=== PATIENT | female | born 1985 | race Two or more races ===

== ENCOUNTER 2018-04-13 15:35 | Emergency (ER) | payer MEDICAID ==
[~2018-04-13] VITALS: Ht 167.6 cm; Wt 88.9 kg
[~2018-04-13 15:35] MED LIST: CIPROFLOXACIN500 M2 ORAL; IBUPROFEN600 MG ORAL; KEFLEX500 MG ORAL; ZOFRAN4 MG ORAL
[2018-04-13 15:50] VITALS: BP 121/76
[2018-04-13] MEDS ORDERED: NKM (15:50)
[2018-04-13 16:24] LABS: APPEARANCE,URINE CLEAR; BILIRUBIN, URINE NEGATIVE (NEGATIVE); COLOR,URINE PALE YELLOW; GLUCOSE, URINE (UA) 4+ (NEGATIVE); KETONES,URINE NEGATIVE (NEGATIVE); LEUKOCYTE ESTERASE ,URINE 2+ (NEGATIVE); NITRITE,URINE NEGATIVE (NEGATIVE); PH,URINE 6 (4.5-8.0); PROTEIN,URINE 1+ (NEGATIVE); UROBILINOGEN,URINE NORMAL MG/DL (0.0-1.0)
--- NOTE | 2018-04-13 16:34 | Emergency Room Report ---
History of Present Illness General Chief Complaint: Female Urogenital Problems Source: Patient Present Illness HPI 33-year-old female patient presents the ER complaining of pain with urinating for the past 5 days. Denies rash or lesions. Denies vaginal discharge. Denies hematuria. Reports increased frequency and urgency. Reports suprapubic pain and right-sided pelvic pain. Denies vaginal discharge. Denies fever, vomiting, chest pain, shortness of breath, diarrhea. Denies constipation. Reports recent sexual activity, states with one partner, denies concern for STI. Denies history of kidney stones. Allergies: Coded Allergies: NO KNOWN ALLERGIES (Unverified Allergy, Unknown, 02/09/15) Patient History Past Medical History: see triage record Now: No Reviewed Nursing Documentation: PMH: Agreed; PSxH: Agreed Nursing Documentation-PMH Past Medical History: No Stated History Review of Systems All Other Systems: negative except mentioned in HPI Physical Exam Vital Signs Date Time Temp Pulse Resp B/P (MAP) Pulse Ox O2 Delivery O2 Flow Rate FiO2 04/13/18 15:47 98.4 95 18 123/78 99 Room Air Sp02 EP Interpretation: reviewed, normal General Appearance: well appearing, no apparent distress, alert, GCS 15, non- toxic Head: normocephalic, atraumatic Eyes: bilateral eye normal inspection, bilateral eye PERRL ENT: hearing grossly normal, normal pharynx, no angioedema, normal voice, uvula midline, moist mucus membranes Neck: full range of motion Respiratory: lungs clear, normal breath sounds, no rhonchi, no respiratory distress, no accessory muscle use, no wheezing, speaking full sentences Cardiovascular #1: regular rate, rhythm, no edema Gastrointestinal: non tender, soft, no mass, non-distended, no guarding, no rebound Genitourinary: no CVA tenderness, cervix normal, ext genitalia/vag normal, os closed, other - mucus, no bleeding, mild erythema; mild cervical motion tenderness Musculoskeletal: back normal, digits/nails normal, gait/station normal, normal range of motion, non-tender Neurologic: alert, oriented x3, responsive, motor strength/tone normal, sensory intact Psychiatric: mood/affect normal Skin: no rash Lymphatic: no adenopathy Medical Decision Making PA Attestation Dr. Meeks is my supervising Physician whom patient management has been discussed with. Diagnostic Impression: Primary Impression: Pelvic inflammatory disease Additional Impressions: Trichomoniasis Elevated random blood glucose level Lesion of cervix ER Course Pt presents to ED c/o suprapubic pain and dysuria. DDX considered but are not limited to PID, ovarian torsion, UTI, STI, kidney stones, appendicitis, tubo-ovarian abscess, cholecystitis, gastroenteritis, ovarian cyst, pyelonephritis, Cevh-[id number]. Patient resting comfortably, no acute distress, no CVA tenderness on exam, no hematuria, low suspicion for nephrolithiasis, does not require CT at this time. VITAL SIGNS are WNL, patient is afebrile ER COURSE: Provided with pain medication. Provided with IV fluids. CBC, CMP shows no elevation in WBCs or LFTs, elevated blood glucose noted, advised patient to follow-up with PCP to discuss further evaluation for diabetes , denies history of diabetes. Her acute intervention in the ER. UA with reflux few WBCs and epithelial cells, UTI unlikely, trichomonads noted, likely Trichomonas infection, will treat with Flagyl. Urine negative Wet mount shows rare trichomonads, moderate white blood cells and epithelial cells, no clue cells, no yeast, consistent with UA results. Provide patient with azithromycin and Rocephin while in the ER to cover for possible STI infection. Advised patient follow-up with STI clinic. Advised patient to inform partners of need for testing. Follow-up with PCP. Ultrasound echogenic lesion within the cervix nonspecific findings, possible calcification with a nabothian cyst, otherwise no acute findings, no tubo- ovarian abscess. Discuss results with the patient. Provided patient with copy of results. Instructed patient to followup with PCP and discuss results of report with patient, discuss need for further treatment and referral. Endocervical swab for gonorrhea/chlamydia Physical exam shows patient with cervical motion tenderness. Will treat patient for PID with doxycycline and metronidazole due to positive Trichomonas on UA and wet mount. Advised patient not to drink alcohol while taking metronidazole. Follow-up with SAFETY REPRESENTATIVE specialist. Provided with contact information for SAFETY REPRESENTATIVE specialist. ER precautions given. Patient reports pain symptoms improved while in the ER. DISCHARGE: -Rx provided for Doxycycline 100mg PO BID x 14 days -Rx provided for Metronidazole 500mg PO BID x 14 days At this time pt is stable for d/c to home. Will provide with patient care instructions and any necessary prescriptions. Patient to take medication as instructed. Care plan and follow-up instructions provided. Patient questions asked and answered. Patient instructed to follow-up with OBGYN in 72 hours. Patient should follow-up with PCP in 3 - 5 days. ER precautions given. Patient instructed to return to ER immediately for any new or worsening of symptoms. - Please note that this Emergency Department Report was dictated using [employer]vibration technician technology software, occasionally this can lead to erroneous entry secondary to interpretation by the dictation equipment. Labs Test 04/13/18 16:12 04/13/18 18:28 Urine Color Pale yellow Urine Appearance Clear Urine pH 6 (4.5-8.0) Urine Specific [place] 1.005 (1.005-1.035) Urine Protein 1+ (NEGATIVE) Urine Glucose (UA) 4+ (NEGATIVE) Urine Ketones Negative (NEGATIVE) Urine Blood 2+ (NEGATIVE) Urine Nitrite Negative (NEGATIVE) Urine Bilirubin Negative (NEGATIVE) Urine Urobilinogen Normal MG/DL (0.0-1.0) Urine Leukocyte Esterase 2+ (NEGATIVE) Urine RBC 5-10 /HPF (0 - 2) Urine WBC 2-4 /HPF (0 - 2) Urine Squamous Epithelial Cells Few /LPF (NONE/OCC) Urine Bacteria Few /HPF (NONE) Urine Trichomonas Few /HPF (NONE) Urine HCG, Qualitative Negative (NEGATIVE) White Blood Count 9.6 K/UL (4.8-10.8) Red Blood Count 4.87 M/UL (4.20-5.40) Hemoglobin 14.4 G/DL (12.0-16.0) Hematocrit 41.8 % (37.0-47.0) Mean Corpuscular Volume 86 FL (80-99) Mean Corpuscular Hemoglobin 29.5 PG (27.0-31.0) Mean Corpuscular Hemoglobin Concent 34.3 G/DL (32.0-36.0) Red Cell Distribution Width 10.6 % (11.6-14.8) Platelet Count 242 K/UL (150-450) Mean Platelet Volume 8.1 FL (6.5-10.1) Neutrophils (%) (Auto) 81.3 % (45.0-75.0) Lymphocytes (%) (Auto) 12.8 % (20.0-45.0) Monocytes (%) (Auto) 5.0 % (1.0-10.0) Eosinophils (%) (Auto) 0.3 % (0.0-3.0) Basophils (%) (Auto) 0.6 % (0.0-2.0) Sodium Level 135 MMOL/L (136-145) Potassium Level 3.6 MMOL/L (3.5-5.1) Chloride Level 98 MMOL/L (98-107) Carbon Dioxide Level 26 MMOL/L (21-32) Anion Gap 11 mmol/L (5-15) Blood Urea Nitrogen 11 mg/dL (7-18) Creatinine 1.0 MG/DL (0.55-1.30) Estimat Glomerular Filtration Rate > 60 mL/min (>60) Glucose Level 345 MG/DL (74-106) Calcium Level 9.5 MG/DL (8.5-10.1) Total Bilirubin 0.8 MG/DL (0.2-1.0) Aspartate Amino Transf (AST/SGOT) 25 U/L (15-37) Alanine Aminotransferase (ALT/SGPT) 50 U/L (12-78) Alkaline Phosphatase 110 U/L (46-116) Total Protein 8.0 G/DL (6.4-8.2) Albumin 3.8 G/DL (3.4-5.0) Globulin 4.2 g/dL Albumin/Globulin Ratio 0.9 (1.0-2.7) Lipase 87 U/L (73-393) CT/MRI/US Diagnostic Results CT/MRI/US Diagnostic Results : Imaging Test Ordered: Pelvic US Impression There is an echogenic lesion seen within the cervix. Findings are nonspecific and may represent non-shadowing calcification within the nabothian cysts. Otherwise, no acute findings. Last Vital Signs Date Time Temp Pulse Resp B/P (MAP) Pulse Ox O2 Delivery O2 Flow Rate FiO2 04/13/18 15:50 98.6 88 18 121/76 98 Room Air Status: improved Disposition: HOME, SELF-CARE Condition: Stable Scripts Metronidazole* (FLAGYL*) 500 Mg Tablet 500 MG ORAL BID for 14 Days, #28 TAB Prov: Burke Hidalgo P.AReji 04/13/18 Doxycycline Hyclate* (VIBRAMYCIN*) 100 Mg Capsule 100 MG ORAL EVERY 12 HOURS for 14 Days, #28 CAP 0 Refills Prov: Burke Hidalgo P.AReji 12/28/18 Referrals: NOT CHOSEN IPA/MD,REFERRING (PCP) Patient Instructions: Pelvic Inflammatory Disease, [id number], Trichomoniasis Additional Instructions: Followup with primary care provider and followup with and./or OBGYN. Discuss elevated blood sugar and evaluation for diabetes with PCP. Drink plenty of fluids. Take medications as directed. Do not drink alcohol while taking Flagyl. Patient questions asked and answered. ER precautions given, patient instructed to return to ER immediately for any new or worsening of symptoms. Burke Hidalgo Apr 13, 2018 16:34
[2018-04-13] MEDS ORDERED: Lidocaine 1% MPF 10mg/ml 5ml INJ ONE (18:15)
[2018-04-13] MEDS ORDERED: Azithromycin 250mg tab ORAL ONE (18:15)
[2018-04-13 18:48] LABS: ANION GAP 11 mmol/L (5-15); BLOOD UREA NITROGEN 11 mg/dL (7-18); CALCIUM 9.5 MG/DL (8.5-10.1); CARBON DIOXIDE 26 MMOL/L (21-32); CHLORIDE 98 MMOL/L (98-107); POTASSIUM 3.6 MMOL/L (3.5-5.1); SODIUM 135 MMOL/L (136-145)
[2018-04-13 18:52] LABS: ALANINE AMINOTRANSFERASE 50 U/L (12-78); ALBUMIN 3.8 G/DL (3.4-5.0); ALBUMIN/GLOBULIN RATIO 0.9 (1.0-2.7); ALKALINE PHOSPHATASE 110 U/L (46-116); ASPARTATE AMINO TRANSFERASE 25 U/L (15-37); BILIRUBIN,TOTAL 0.8 MG/DL (0.2-1.0)
[2018-04-13 19:04] LABS: BASOPHILS % (AUTO) 0.6 % (0.0-2.0); EOSINOPHILS % (AUTO) 0.3 % (0.0-3.0); HEMATOCRIT 41.8 % (37.0-47.0); HEMOGLOBIN 14.4 G/DL (12.0-16.0); LYMPHOCYTES % (AUTO) 12.8 % (20.0-45.0); MEAN CORPUSCULAR VOLUME 86 FL (80-99); NEUTROPHILS % (AUTO) 81.3 % (45.0-75.0); PLATELET COUNT 242 K/UL (150-450); RED BLOOD COUNT 4.87 M/UL (4.20-5.40); RED CELL DISTRIBUTION WIDTH 10.6 % (11.6-14.8); WHITE BLOOD COUNT 9.6 K/UL (4.8-10.8)
[2018-04-13] MEDS ORDERED: METRONIDAZOLE500 MG ORAL (20:19)
[2018-04-13] MEDS ORDERED: VIBRAMYCIN100 MG ORAL (20:19)
--- NOTE | 2018-04-13 20:51 | Diagnostic Imaging Report ---
EXAM: US Pelvis Complete, Transabdominal CLINICAL HISTORY: ABD PAIN TECHNIQUE: Real-time transabdominal pelvic ultrasound (complete) with image documentation. COMPARISON: No relevant prior studies available. FINDINGS: Uterus/cervix: There is an echogenic lesion seen within the cervix. Normal endometrial stripe thickness. No myometrial mass. Right ovary: 2.2 x 1.8 x 1.2 cm. No mass. Normal blood flow. Left ovary: 2.8 x 2.8 x 1.6 cm. No mass. Normal blood flow. Free fluid: No free fluid. IMPRESSION: There is an echogenic lesion seen within the cervix. Findings are nonspecific and may represent non-shadowing calcification within the nabothian cysts. Otherwise, no acute findings.
[2018-04-13 21:15] VITALS: BP 118/73
== END 2018-04-13 21:15 | disposition home or self-care (01) ==
LOC: EMR 16:09
DX: N73.9 Female pelvic inflammatory disease, unspecified (principal); A59.9 Trichomoniasis, unspecified; R73.09 Other abnormal glucose; R93.89 Abnormal findings on diagnostic imaging of other specified body structures
CPT/HCPCS: 36415; 76830; 76856; 80053; 81003; 81025; 83690; 85025; 87210; 96360; 96372; 99284; J0696; Q0144

== ENCOUNTER 2018-09-13 22:42 | Emergency (ER) | payer MEDICAID ==
[~2018-09-13] VITALS: Ht 167.6 cm; Wt 89.8 kg
[~2018-09-13 22:42] MED LIST changes: +METRONIDAZOLE500 MG ORAL; +NKM; +VIBRAMYCIN100 MG ORAL
[2018-09-13 22:59] VITALS: BP 130/78
--- NOTE | 2018-09-13 23:00 | NUR ---
ER Nurse Note: Pt came from home c/o bleeding from left breast with pressure. Pt stated she had a biopsy on August 27. Per pt, no pain but pain present when pressure. Slight drainage from biopsy wound; blood and clear like fluid. Pt a&ox4, VSS, no signs of distress. Will continue to montior.
[2018-09-13] MEDS ORDERED: CEPHALEXIN500 MG ORAL (23:29)
[2018-09-13] MEDS ORDERED: Bacitracin Oint UD TOPIC ONE (23:30)
[2018-09-13 23:45] VITALS: BP 130/78
--- NOTE | 2018-09-13 23:45 | NUR ---
ER Nurse Note: All orders completed per ERMD orders. Pt seen, treated, medically cleared for discharge by ERMD. Discharge instructions given with repeat verbazliaion by pt. Instructed pt to follow up with primary care provider and biopsy center within 2-3 days. Pt a&ox4, VSS, no signs of distress. Puncture site cleaned and gauzed. ID band removed. Pt left with all belongings with steady gait via own transportation.
--- NOTE | 2018-09-14 00:41 | Emergency Room Report ---
History of Present Illness General Chief Complaint: General Complaint Source: Patient Present Illness HPI Patient present with complaints of recent discharge from her left lower breast Biopsy site patient had biopsy taken on August 27 Reports that there was some mild bruising noted There was some mild swelling as well however today she noticed some discharge from a small region with a biopsy was taken Denies any change in pain denies any change with collar at this time Denies any other trauma Patient had the procedure performed at the [facility] Allergies: Coded Allergies: NO KNOWN ALLERGIES (Unverified Allergy, Unknown, 09/13/18) Patient History Past Medical History: see triage record Pertinent Family History: none Last Menstrual Period: 09/13/18 Now: No : 3 Para: 3 Reviewed Nursing Documentation: PMH: Agreed; PSxH: Agreed Nursing Documentation-PMH Past Medical History: No Stated History Review of Systems All Other Systems: negative except mentioned in HPI Physical Exam Vital Signs Date Time Temp Pulse Resp B/P (MAP) Pulse Ox O2 Delivery O2 Flow Rate FiO2 09/13/18 22:43 98.1 78 18 130/78 (95) 97 Room Air Sp02 EP Interpretation: reviewed, normal General Appearance: well appearing, no apparent distress Head: normocephalic, atraumatic Eyes: bilateral eye PERRL, bilateral eye EOMI ENT: hearing grossly normal, normal pharynx Neck: supple Respiratory: lungs clear Cardiovascular #1: regular rate, rhythm Musculoskeletal: normal inspection Neurologic: alert, oriented x3, responsive Skin: other - Left breast, approximately 2 cm lateral and 1 cm inferior to the area lower area there is a small pinpoint region with clear discharge, around the area is a palpable mass, patient reports that this mass is the same as it has been and was the reason for the biopsy. No other fluctuance is palpated no flaring of erythema visualized Lymphatic: no adenopathy Medical Decision Making Diagnostic Impression: Primary Impression: hematoma Additional Impression: breast biopsy, discharge ER Course The area in question appears to be very localized in nature No obvious other fluctuance is palpable, the pinpoint region is likely where the biopsy was taken, no pus or discoloration is noted in the discharge and appears to be essentially serosanguineous. Given the discharge now after 2 weeks patient is provided antibiotics She will contact the breast center tomorrow morning Does not appear septic or toxic and is stable for close follow-up Last Vital Signs Date Time Temp Pulse Resp B/P (MAP) Pulse Ox O2 Delivery O2 Flow Rate FiO2 09/13/18 22:59 98.1 78 18 130/78 97 Room Air Status: improved Disposition: HOME, SELF-CARE Condition: Stable Scripts Cephalexin* (KEFLEX*) 500 Mg Capsule 500 MG ORAL EVERY 6 HOURS for 7 Days, CAP Prov: Constantino Maxwell DO 09/13/18 Patient Instructions: Breast Biopsy, Care After, [id number], Dressing Change , Hematoma, [id number] Additional Instructions: Please contact the [facility], where you had the procedure performed tomorrow in the morning. You have the phone number and your referral Please follow-up this call with a phone call to your clinic as well Return to the ER with any worsening symptoms such as fevers, worsening swelling or edema Constantino Maxwell DO September 14, 2018 00:41
== END 2018-09-13 23:45 | disposition home or self-care (01) ==
LOC: EMR 23:03
DX: N64.89 Other specified disorders of breast (principal); N64.52 Nipple discharge; Z98.890 Other specified postprocedural states
CPT/HCPCS: 99282

== ENCOUNTER 2018-11-28 19:13 | Emergency (ER) | payer MEDICAID ==
[~2018-11-28] VITALS: Ht 165.1 cm; Wt 89.4 kg
[~2018-11-28 19:13] MED LIST changes: +CEPHALEXIN500 MG ORAL
--- NOTE | 2018-11-28 19:42 | NUR ---
ED Nurse Note: PT AMBULATED TO ED C/O LEFT BREAST INFECTION. PT DENIES DISCHARGE, BUT STATES REDNESS AND INCREAED WARMTH IN AREA X 2 DAYS. Pt is AO x 4times, VSS, on room air no distress.MD seen Pt at bedside.
--- NOTE | 2018-11-28 19:42 | Emergency Room Report ---
History of Present Illness General Chief Complaint: General Complaint Source: Patient Present Illness HPI 33-year-old female with no significant past medical history here complaining of pain and swelling over her left breast. Patient reports that back in August 2018 she had a breast biopsy done and it showed breast cyst. However she had a breast abscess 1 month ago and was drained by a specialist patient was put on antibiotics right after. She denies any pain or swelling at the site of the drainage however reports that 2 days ago started having pain and erythema on the medial side of the same breast away from where she had incision and drainage. Rating the pain is 7 out of 10 upon palpation without radiation. Has not taken medication for pain. Denies fever and chills, shortness of breath , palpitation, nipple discharge, and other associated symptoms. Patient has an upcoming appointment with her specialist this coming Monday. Allergies: Coded Allergies: NO KNOWN ALLERGIES (Unverified Allergy, Unknown, 09/13/18) Patient History Past Medical History: see triage record Past Surgical History: unable to obtain Pertinent Family History: none Last Menstrual Period: 11/04/18 Now: No Immunizations: UTD Reviewed Nursing Documentation: PMH: Agreed; PSxH: Agreed Nursing Documentation-PMH Past Medical History: No History, Except For Hx Diabetes: Yes Review of Systems All Other Systems: negative except mentioned in HPI Physical Exam Vital Signs Date Time Temp Pulse Resp B/P (MAP) Pulse Ox O2 Delivery O2 Flow Rate FiO2 11/28/18 19:22 98.2 71 16 114/71 (85) 98 Room Air Sp02 EP Interpretation: reviewed, normal General Appearance: no apparent distress, alert, GCS 15, non-toxic Head: normocephalic, atraumatic Eyes: bilateral eye normal inspection, bilateral eye PERRL ENT: hearing grossly normal, normal pharynx, no angioedema, normal voice Neck: full range of motion, supple/symm/no masses Respiratory: chest non-tender, lungs clear, normal breath sounds, speaking full sentences Cardiovascular #1: regular rate, rhythm, no edema, no murmur Gastrointestinal: normal bowel sounds, non tender, soft, non-distended, no guarding, no rebound Musculoskeletal: back normal, gait/station normal, normal range of motion, non- tender Neurologic: alert, oriented x3, responsive, motor strength/tone normal, sensory intact, speech normal Skin: other - Cellulitis of left breast on medial side, no pus drainage and no mass noted Lymphatic: no adenopathy Medical Decision Making PA Attestation All my diagnosis and treatment plans were reviewed ad discussed with my supervising physician Dr. Keita Diagnostic Impression: Primary Impression: Cellulitis of breast ER Course 33-year-old female with no significant past medical history here complaining of pain and swelling over her left breast. Patient reports that back in August 2018 she had a breast biopsy done and it showed breast cyst. However she had a breast abscess 1 month ago and was drained by a specialist patient was put on antibiotics right after. She denies any pain or swelling at the site of the drainage however reports that 2 days ago started having pain and erythema on the medial side of the same breast away from where she had incision and drainage. Rating the pain is 7 out of 10 upon palpation without radiation. Has not taken medication for pain. Denies fever and chills, shortness of breath , palpitation, nipple discharge, and other associated symptoms. Patient has an upcoming appointment with her specialist this coming Monday. Ddx considered but are not limited to : Cellulitis,, superficial infection, abscess Vital signs: are WNL, pt. is afebrile H&PE are most consistent with: Cellulitis of left breast ORDERS: Keflex, ibuprofen ED INTERVENTIONS: Rocephin DISCHARGE: At this time pt. is stable for d/c to home. Will provide printed patient care instructions, and any necessary prescriptions. Care plan and follow up instructions have been discussed with the patient prior to discharge. Follow-up with your specialist regarding cellulitis of your breast if worsening symptoms, fever and chills return to the emergency room. Last Vital Signs Date Time Temp Pulse Resp B/P (MAP) Pulse Ox O2 Delivery O2 Flow Rate FiO2 11/28/18 19:22 98.2 71 16 114/71 (85) 98 Room Air Disposition: HOME, SELF-CARE Condition: Stable Scripts Ibuprofen (Ibu) 800 Mg Tablet 800 MG PO TID, #21 TAB Prov: Roni Clarke 11/28/18 Cephalexin* (KEFLEX*) 500 Mg Capsule 500 MG ORAL EVERY 6 HOURS for 7 Days, #28 CAP Prov: Roni Clarke 11/28/18 Patient Instructions: Cellulitis, [id number] Additional Instructions: Take medication as directed follow-up with your primary care provider and your specialist as well as breast ultrasound. If worsening symptoms return to emergency room Roni Clarke Nov 28, 2018 19:42
[2018-11-28] MEDS ORDERED: IBU800 MG PO (19:43)
[2018-11-28] MEDS ORDERED: CEPHALEXIN500 MG ORAL (19:43)
[2018-11-28] MEDS ORDERED: Lidocaine 1% MPF 10mg/ml 5ml INJ ONE (19:45)
[2018-11-28 20:12] VITALS: BP 127/77
[2018-11-28 20:17] VITALS: BP 127/77
--- NOTE | 2018-11-28 20:18 | NUR ---
ER DISCHARGE NOTE: Patient is cleared to be discharged per ERMD, pt is aox4, on room air, with stable vital signs. pt was given dc and prescription instructions, pt was able to verbalize understanding, pt id band removed without complications. pt is able to ambulate with steady gait with family. pt took all belongings.
== END 2018-11-28 20:19 | disposition home or self-care (01) ==
LOC: EMR 19:53
DX: N61.0 Mastitis without abscess (principal); E11.9 Type 2 diabetes mellitus without complications
CPT/HCPCS: 96372; 96374; 99284; J0696

== ENCOUNTER 2019-05-29 20:17 | Emergency (ER) | payer MEDICAID ==
[~2019-05-29] VITALS: Ht 165.1 cm; Wt 93.0 kg
[~2019-05-29 20:17] MED LIST changes: +IBU800 MG PO
--- NOTE | 2019-05-29 20:32 | NUR ---
ED Nurse Note: PT walked in to ED for C/O Abdominal pain x 3 days. pt reports having nausea. denies diarrhea or vomit. pt is alert x4.
[2019-05-29 20:34] VITALS: BP 118/74
[2019-05-29] MEDS ORDERED: Dicyclomine HCl 10mg/5ml oral soln ORAL ONE (20:45)
[2019-05-29] MEDS ORDERED: Lidocaine 2% Visc 15ml soln ORAL ONE (20:45)
[2019-05-29] MEDS ORDERED: Mylanta II UD 30ml ORAL ONE (20:45)
[2019-05-29 21:00] LABS: BASOPHILS % (AUTO) 0.5 % (0.0-2.0); EOSINOPHILS % (AUTO) 1.2 % (0.0-3.0); HEMATOCRIT 44.5 % (37.0-47.0); HEMOGLOBIN 14.4 G/DL (12.0-16.0); LYMPHOCYTES % (AUTO) 19.9 % (20.0-45.0); MEAN CORPUSCULAR VOLUME 90 FL (80-99); MONOCYTES % (AUTO) 3.9 % (1.0-10.0); NEUTROPHILS % (AUTO) 74.5 % (45.0-75.0); PLATELET COUNT 296 K/UL (150-450); RED BLOOD COUNT 4.95 M/UL (4.20-5.40); RED CELL DISTRIBUTION WIDTH 11.9 % (11.6-14.8); WHITE BLOOD COUNT 7.6 K/UL (4.8-10.8)
[2019-05-29 21:01] LABS: APPEARANCE,URINE CLEAR; BILIRUBIN, URINE NEGATIVE (NEGATIVE); COLOR,URINE PALE YELLOW; GLUCOSE, URINE (UA) NEGATIVE (NEGATIVE); KETONES,URINE NEGATIVE (NEGATIVE); LEUKOCYTE ESTERASE ,URINE NEGATIVE (NEGATIVE); NITRITE,URINE NEGATIVE (NEGATIVE); PH,URINE 5 (4.5-8.0); PROTEIN,URINE NEGATIVE (NEGATIVE); UROBILINOGEN,URINE NORMAL MG/DL (0.0-1.0)
[2019-05-29 21:07] LABS: ANION GAP 9 mmol/L (5-15); BLOOD UREA NITROGEN 10 mg/dL (7-18); CALCIUM 9.3 MG/DL (8.5-10.1); CARBON DIOXIDE 26 MMOL/L (21-32); CHLORIDE 102 MMOL/L (98-107); CREATININE 0.6 MG/DL (0.55-1.30); POTASSIUM 3.7 MMOL/L (3.5-5.1); SODIUM 137 MMOL/L (136-145)
[2019-05-29 21:11] LABS: ALANINE AMINOTRANSFERASE 92 U/L (12-78); ALBUMIN 4.2 G/DL (3.4-5.0); ALBUMIN/GLOBULIN RATIO 1.1 (1.0-2.7); ALKALINE PHOSPHATASE 80 U/L (46-116); ASPARTATE AMINO TRANSFERASE 32 U/L (15-37); BILIRUBIN,TOTAL 0.5 MG/DL (0.2-1.0)
[2019-05-29] MEDS ORDERED: ONDANSETRON ODT4 MG BC (21:27)
[2019-05-29] MEDS ORDERED: RANITIDINE HCL150 MG ORAL (21:27)
[2019-05-29 21:29] VITALS: BP 122/70
--- NOTE | 2019-05-29 21:29 | NUR ---
ER DISCHARGE NOTE: Patient is cleared to be discharged per ERMD, pt is aox4, on room air, with stable vital signs. pt was given dc and prescription instructions, pt was able to verbalize understanding, pt id band and iv site removed without complications. pt is able to ambulate with steady gait. pt took all belongings.
--- NOTE | 2019-05-31 07:16 | Emergency Room Report ---
History of Present Illness General Chief Complaint: Abdominal Pain Source: Patient Present Illness HPI 34-year-old female presents ED for evaluation. Complaining of abdominal pain for the last 3 days. Pain is epigastric, burning, 6 out of 10, nonradiating. Denies nausea or vomiting. Denies diarrhea. Denies chest pain. Denies fevers or chills. No other aggravating relieving factors. Denies any other associated symptoms Allergies: Coded Allergies: NO KNOWN ALLERGIES (Unverified Allergy, Unknown, 09/13/18) Patient History Past Medical History: DM Past Surgical History: none Pertinent Family History: none Social History: Denies: smoking, alcohol use, drug use Last Menstrual Period: 05/23/19 Now: No : 3 Para: 3 Immunizations: UTD Reviewed Nursing Documentation: PMH: Agreed; PSxH: Agreed Nursing Documentation-PMH Past Medical History: No History, Except For Hx Diabetes: Yes Review of Systems All Other Systems: negative except mentioned in HPI Physical Exam Vital Signs Date Time Temp Pulse Resp B/P (MAP) Pulse Ox O2 Delivery O2 Flow Rate FiO2 05/29/19 20:25 98.2 59 18 121/80 (94) 98 Room Air Sp02 EP Interpretation: reviewed, normal General Appearance: no apparent distress, alert, GCS 15, non-toxic Head: normocephalic, atraumatic Eyes: bilateral eye normal inspection, bilateral eye PERRL ENT: hearing grossly normal, normal pharynx, no angioedema, normal voice Neck: full range of motion, supple/symm/no masses Respiratory: chest non-tender, lungs clear, normal breath sounds, speaking full sentences Cardiovascular #1: regular rate, rhythm, no edema Cardiovascular #2: 2+ carotid (R), 2+ carotid (L), 2+ radial (R), 2+ radial (L) , 2+ dorsalis pedis (R), 2+ dorsalis pedis (L) Gastrointestinal: normal bowel sounds, soft, non-distended, no guarding, no rebound, tenderness - Epigastric Rectal: deferred Genitourinary: normal inspection, no CVA tenderness Musculoskeletal: back normal, normal range of motion, gait/station normal, non- tender Neurologic: alert, motor strength/tone normal, oriented x3, sensory intact, responsive, speech normal Psychiatric: judgement/insight normal, memory normal, mood/affect normal, no suicidal/homicidal ideation Reflexes: 3+ bicep (R), 3+ bicep (L), 3+ tricep (R), 3+ tricep (L), 3+ knee (R) , 3+ knee (L) Lymphatic: no adenopathy Medical Decision Making Diagnostic Impression: Primary Impression: Gastritis Qualified Codes: K29.00 - Acute gastritis without bleeding ER Course Hospital Course 34-year-old F presents to ED with epigastric pain differential diagnosis: gastritis, SBO, cholecystits Clinical course Patient placed on stretcher. On monitoring manager. After initial history and physical I ordered labs, IV fluids, Pepcid, GI cocktail Labs - no leukocytosis, no electrolyte abnormalities, LFTs normal, UA unremarkable Upon reassessment, patient states pain has improved. findings consistent with gastritis. I discussed findings with patient. Safe for discharge with close outpatient follow-up. I will provide referrals I feel this is a highly complex case requiring extensive working including EKG/ Rhythm strip, Xray/CT/US, Blood/urine lab work, repeat exams while in ED, and administration of strong opiates/narcotics for pain control, admission to hospital or close patient follow up. Diagnosis - gastritis Stable and discharged to home with prescriptions for Zantac, Zofran. Followup with PMD. Return to ED if symptoms recur or worsen Labs Test 05/29/19 20:35 05/29/19 20:40 Urine Color Pale yellow Urine Appearance Clear Urine pH 5 (4.5-8.0) Urine Specific [place] 1.010 (1.005-1.035) Urine Protein Negative (NEGATIVE) Urine Glucose (UA) Negative (NEGATIVE) Urine Ketones Negative (NEGATIVE) Urine Blood 1+ (NEGATIVE) Urine Nitrite Negative (NEGATIVE) Urine Bilirubin Negative (NEGATIVE) Urine Urobilinogen Normal MG/DL (0.0-1.0) Urine Leukocyte Esterase Negative (NEGATIVE) Urine RBC 0 /HPF (0 - 2) Urine WBC 0 /HPF (0 - 2) Urine Squamous Epithelial Cells Occasional /LPF Urine Bacteria None /HPF (NONE) Urine HCG, Qualitative Negative (NEGATIVE) White Blood Count 7.6 K/UL (4.8-10.8) Red Blood Count 4.95 M/UL (4.20-5.40) Hemoglobin 14.4 G/DL (12.0-16.0) Hematocrit 44.5 % (37.0-47.0) Mean Corpuscular Volume 90 FL (80-99) Mean Corpuscular Hemoglobin 29.1 PG (27.0-31.0) Mean Corpuscular Hemoglobin Concent 32.4 G/DL (32.0-36.0) Red Cell Distribution Width 11.9 % (11.6-14.8) Platelet Count 296 K/UL (150-450) Mean Platelet Volume 8.6 FL (6.5-10.1) Neutrophils (%) (Auto) 74.5 % (45.0-75.0) Lymphocytes (%) (Auto) 19.9 % (20.0-45.0) Monocytes (%) (Auto) 3.9 % (1.0-10.0) Eosinophils (%) (Auto) 1.2 % (0.0-3.0) Basophils (%) (Auto) 0.5 % (0.0-2.0) Sodium Level 137 MMOL/L (136-145) Potassium Level 3.7 MMOL/L (3.5-5.1) Chloride Level 102 MMOL/L (98-107) Carbon Dioxide Level 26 MMOL/L (21-32) Anion Gap 9 mmol/L (5-15) Blood Urea Nitrogen 10 mg/dL (7-18) Creatinine 0.6 MG/DL (0.55-1.30) Estimat Glomerular Filtration Rate > 60 mL/min (>60) Glucose Level 219 MG/DL (74-106) Calcium Level 9.3 MG/DL (8.5-10.1) Total Bilirubin 0.5 MG/DL (0.2-1.0) Aspartate Amino Transf (AST/SGOT) 32 U/L (15-37) Alanine Aminotransferase (ALT/SGPT) 92 U/L (12-78) Alkaline Phosphatase 80 U/L (46-116) Total Protein 8.0 G/DL (6.4-8.2) Albumin 4.2 G/DL (3.4-5.0) Globulin 3.8 g/dL Albumin/Globulin Ratio 1.1 (1.0-2.7) Lipase 98 U/L (73-393) Last Vital Signs Date Time Temp Pulse Resp B/P (MAP) Pulse Ox O2 Delivery O2 Flow Rate FiO2 05/29/19 21:29 98.0 65 15 122/70 97 Room Air Status: improved Disposition: HOME, SELF-CARE Condition: Stable Scripts Ondansetron Odt* (ZOFRAN ODT*) 4 Mg Tab.rapdis 4 MG BC EVERY 8 HOURS, #10 TAB 0 Refills Prov: Pito Keita MD 05/29/19 Ranitidine Hcl* (ZANTAC*) 150 Mg Tablet 150 MG ORAL TWICE A DAY, #30 TAB Prov: Pito Keita MD 05/29/19 Referrals: NOT CHOSEN IPA/,REFERRING H [facility] Patient Instructions: Gastritis, Adult, Obrc-[id number] Pito Keita MD May 31, 2019 07:16
== END 2019-05-29 21:29 | disposition home or self-care (01) ==
LOC: EMR 21:23
DX: K29.00 Acute gastritis without bleeding (principal); E11.9 Type 2 diabetes mellitus without complications
CPT/HCPCS: 36415; 80053; 81003; 81025; 83690; 85025; 96361; 96374; J7030; S0028; Z7502; 99284

== ENCOUNTER 2019-10-10 05:32 | Inpatient (IN) | payer MEDICAID ==
[~2019-10-10] VITALS: Ht 165.1 cm; Wt 90.7 kg
[~2019-10-10 05:32] MED LIST changes: +ONDANSETRON ODT4 MG BC; +RANITIDINE HCL150 MG ORAL
--- NOTE | 2019-10-10 05:41 | NUR ---
ED Nurse Note: pt presents to ED c/o epigastric abd px since this AM. pt reports vomiting twice, denies hematemesis. pt appears to be diaphoretic, groaning in px, denies diarrhea
[2019-10-10] MEDS ORDERED: Morphine Sulfate 4mg/ml Inj (IV USE ONLY) IVP ONE (05:45)
[2019-10-10] MEDS ORDERED: DiphenhydrAMINE 50mg/ml Inj IVP ONE (05:45)
[2019-10-10] MEDS ORDERED: Metoclopramide 10mg/2ml Inj IVP ONE (05:45)
--- NOTE | 2019-10-10 05:58 | Emergency Room Report ---
History of Present Illness General Chief Complaint: Abdominal Pain Source: Patient Present Illness HPI 34-year-old female history of gastritis history of diabetes presents with epigastric pain that started last night has been burning, constant no aggravating or alleviating factors severity is moderate patient endorses some nausea, she describes the pain is burning not sharp, no fevers no chills no shortness of breath no diarrhea patient presents for evaluation and treatment Allergies: Coded Allergies: NO KNOWN ALLERGIES (Unverified Allergy, Unknown, 09/13/18) COVID-19 Screening Contact w/high risk pt: No Recent Travel to affected area: No Experienced COVID-19 symptoms?: No COVID-19 Testing performed INCLUSION MANAGER: No Patient History Past Medical History: see triage record Last Menstrual Period: 10/01/19 Now: No Reviewed Nursing Documentation: PMH: Agreed; PSxH: Agreed Nursing Documentation-PMH Hx Diabetes: Yes Review of Systems All Other Systems: negative except mentioned in HPI Physical Exam Vital Signs Date Time Temp Pulse Resp B/P (MAP) Pulse Ox O2 Delivery O2 Flow Rate FiO2 10/10/19 05:37 99.1 102 22 132/98 (109) 98 Room Air Sp02 EP Interpretation: reviewed, normal General Appearance: well appearing, no apparent distress, alert Head: normocephalic, atraumatic Eyes: bilateral eye PERRL, bilateral eye EOMI ENT: uvula midline, moist mucus membranes Neck: supple, thyroid normal, supple/symm/no masses Respiratory: no respiratory distress, no retraction, no accessory muscle use Gastrointestinal: soft, no guarding, no rebound, tenderness - Mild tenderness epigastrically Musculoskeletal: normal inspection Neurologic: alert, oriented x3 Psychiatric: mood/affect normal Skin: no rash, warm/dry Medical Decision Making Diagnostic Impression: Primary Impression: Pancreatitis, gallstone ER Course 34-year-old female presents with epigastric pain differential diagnosis includes cholelithiasis cholecystitis, gastritis, patient's abdomen soft nontender no right upper quadrant pain, pain is tender epigastrically differential also includes pancreatitis, will send labs Patient with elevated lipase, transaminitis, concern for possible gallstone pancreatitis Dr. Tafoya consulted. Patient admitted to Dr. Kidd. Patient given fluids, morphine, zofran, and abx Abx for possible phlegmon near pancreas. [facility] Laboratory Tests Test 10/10/19 05:51 10/10/19 07:09 White Blood Count 11.5 K/UL (4.8-10.8) H Red Blood Count 5.26 M/UL (4.20-5.40) Hemoglobin 15.8 G/DL (12.0-16.0) Hematocrit 46.8 % (37.0-47.0) Mean Corpuscular Volume 89 FL (80-99) Mean Corpuscular Hemoglobin 29.9 PG (27.0-31.0) Mean Corpuscular Hemoglobin Concent 33.7 G/DL (32.0-36.0) Red Cell Distribution Width 11.2 % (11.6-14.8) L Platelet Count 328 K/UL (150-450) Mean Platelet Volume 8.3 FL (6.5-10.1) Neutrophils (%) (Auto) 73.3 % (45.0-75.0) Lymphocytes (%) (Auto) 21.1 % (20.0-45.0) Monocytes (%) (Auto) 4.3 % (1.0-10.0) Eosinophils (%) (Auto) 0.9 % (0.0-3.0) Basophils (%) (Auto) 0.4 % (0.0-2.0) Prothrombin Time 10.7 SEC (9.30-11.50) Prothrombin Time INR 1.0 (0.9-1.1) Activated Partial Thromboplast Time 22 SEC (23-33) L Sodium Level 138 MMOL/L (136-145) Potassium Level 3.6 MMOL/L (3.5-5.1) Chloride Level 102 MMOL/L (98-107) Carbon Dioxide Level 24 MMOL/L (21-32) Anion Gap 12 mmol/L (5-15) Blood Urea Nitrogen 12 mg/dL (7-18) Creatinine 0.8 MG/DL (0.55-1.30) Estimated Glomerular Filtration Rate > 60 mL/min (>60) Glucose Level 194 MG/DL (74-106) H Calcium Level 8.9 MG/DL (8.5-10.1) Total Bilirubin 2.6 MG/DL (0.2-1.0) H Direct Bilirubin 1.3 MG/DL (0.0-0.3) H Aspartate Amino Transferase (AST) 507 U/L (15-37) H Alanine Aminotransferase (ALT) 456 U/L (12-78) H Alkaline Phosphatase 128 U/L (46-116) H Troponin I 0.000 ng/mL (0.000-0.056) Total Protein 7.7 G/DL (6.4-8.2) Albumin 4.1 G/DL (3.4-5.0) Globulin 3.6 g/dL Albumin/Globulin Ratio 1.1 (1.0-2.7) Lipase 76342 U/L (73-393) H Human Chorionic Gonadotropin, Quant 1 mIU/mL (1-6) Urine Color Yellow Urine Appearance Clear Urine pH 5 (4.5-8.0) Urine Specific [place] 1.005 (1.005-1.035) Urine Protein 1+ (NEGATIVE) H Urine Glucose (UA) Negative (NEGATIVE) Urine Ketones Negative (NEGATIVE) Urine Blood Negative (NEGATIVE) Urine Nitrite Negative (NEGATIVE) Urine Bilirubin Negative (NEGATIVE) Urine Urobilinogen Normal MG/DL (0.0-1.0) Urine Leukocyte Esterase 1+ (NEGATIVE) H Urine RBC 0 /HPF (0 - 2) Urine WBC 0-2 /HPF (0 - 2) Urine Squamous Epithelial Cells Occasional /LPF Urine Bacteria Occasional /HPF (NONE) Urine HCG, Qualitative Negative (NEGATIVE) EKG Diagnostic Results EKG Time: 05:59 EP Interpretation: NSR, rate 71, QTc 495, normal axis, no acute ST elevations Rhythm Strip Diag. Results Rhythm Strip Time: 06:09 EP Interpretation: yes Rate: 75 Rhythm: NSR, no PVC's, no ectopy Chest X-Ray Diagnostic Results Chest X-Ray Diagnostic Results : Chest X-Ray Ordered: Yes # of Views/Limited/Complete: 1 View Indication: Other - Epigastric pain EP Interpretation: Yes Interpretation: no consolidation, no effusion, no pneumothorax, no acute cardiopulmonary disease Impression: No acute disease Electronically Signed by: Viraj Gómez MD CT/MRI/US Diagnostic Results CT/MRI/US Diagnostic Results : Impression Procedure: CT Abdomen Pelvis w/Contrast EXAM: CT Abdomen and Pelvis With Intravenous Contrast CLINICAL HISTORY: PAIN TECHNIQUE: Axial computed tomography images of the abdomen and pelvis with intravenous contrast. CTDI is 10 mGy and DLP is 559 mGy-cm. One or more of the following dose reduction techniques were used: automated exposure control, adjustment of the mA and/or kV according to patient size, use of iterative reconstruction technique. COMPARISON: No relevant prior studies available. FINDINGS: Lung bases: Unremarkable. No mass. No consolidation. ABDOMEN: Liver: Unremarkable. No mass. Gallbladder and bile ducts: Gallstones are noted. The gallbladder wall is prominent. Pancreas: There are extensive inflammatory changes around the pancreas, as well as a moderate amount of fluid. These findings are most suggestive of acute pancreatitis. There is no discrete, definable fluid collection. No ductal dilation. Spleen: Unremarkable. No splenomegaly. Adrenals: Unremarkable. No mass. Kidneys and ureters: Unremarkable. No solid mass. No hydronephrosis. Stomach and bowel: Unremarkable. No obstruction. No mucosal thickening. PELVIS: Appendix: Normal appendix. Bladder: Unremarkable. No mass. Reproductive: Unremarkable as visualized. ABDOMEN and PELVIS: Intraperitoneal space: Unremarkable. No free air. No significant fluid collection. Bones/joints: No acute fracture. No dislocation. Soft tissues: Unremarkable. Vasculature: Unremarkable. No abdominal aortic aneurysm. Lymph nodes: Unremarkable. No enlarged lymph nodes. IMPRESSION: 1. Extensive peripancreatic inflammatory changes consistent with acute pancreatitis. 2. Cholelithiasis. The gallbladder wall is prominent-cannot exclude acute cholecystitis. Dictated By: Tameka Colón MD Electronically Signed By: Tameka Colón MD Signed Date/Time 10/10/19 0745 CC: Viraj Góemz MD Last Vital Signs Date Time Temp Pulse Resp B/P (MAP) Pulse Ox O2 Delivery O2 Flow Rate FiO2 10/10/19 05:37 99.1 102 22 132/98 (109) 98 Room Air Disposition: ADMITTED INPATIENT Condition: Stable Scripts No Active Prescriptions or Reported Meds Referrals: NOT CHOSEN IPA/,REFERRING (PCP) Viraj Gómez MD Oct 10, 2019 05:58
[2019-10-10] MEDS ORDERED: Omnipaque-300 100ml vial INJ PRN (06:00)
[2019-10-10 06:04] VITALS: BP 132/98
[2019-10-10 06:06] LABS: BASOPHILS % (AUTO) 0.4 % (0.0-2.0); EOSINOPHILS % (AUTO) 0.9 % (0.0-3.0); HEMATOCRIT 46.8 % (37.0-47.0); HEMOGLOBIN 15.8 G/DL (12.0-16.0); LYMPHOCYTES % (AUTO) 21.1 % (20.0-45.0); MEAN CORPUSCULAR VOLUME 89 FL (80-99); MONOCYTES % (AUTO) 4.3 % (1.0-10.0); NEUTROPHILS % (AUTO) 73.3 % (45.0-75.0); PLATELET COUNT 328 K/UL (150-450); RED BLOOD COUNT 5.26 M/UL (4.20-5.40); RED CELL DISTRIBUTION WIDTH 11.2 % (11.6-14.8); WHITE BLOOD COUNT 11.5 K/UL (4.8-10.8)
[2019-10-10] MEDS ORDERED: HYDROmorphone 1mg/ml Carpuject IVP ONE ×2 (06:15→09:30)
[2019-10-10 06:24] LABS: ANION GAP 12 mmol/L (5-15); BLOOD UREA NITROGEN 12 mg/dL (7-18); CALCIUM 8.9 MG/DL (8.5-10.1); CARBON DIOXIDE 24 MMOL/L (21-32); CHLORIDE 102 MMOL/L (98-107); CREATININE 0.8 MG/DL (0.55-1.30); POTASSIUM 3.6 MMOL/L (3.5-5.1); SODIUM 138 MMOL/L (136-145)
[2019-10-10 06:35] LABS: ALANINE AMINOTRANSFERASE 456 U/L (12-78); ALBUMIN 4.1 G/DL (3.4-5.0); ALBUMIN/GLOBULIN RATIO 1.1 (1.0-2.7); ALKALINE PHOSPHATASE 128 U/L (46-116); ASPARTATE AMINO TRANSFERASE 507 U/L (15-37); BILIRUBIN,TOTAL 2.6 MG/DL (0.2-1.0)
[2019-10-10 06:38] LABS: BILIRUBIN,DIRECT 1.3 MG/DL (0.0-0.3)
--- NOTE | 2019-10-10 07:03 | NUR ---
ED Nurse Note: Received report from Sonam SLAUGHTER. Pt is in CT.
--- NOTE | 2019-10-10 07:06 | NUR ---
ED Nurse Note: Pt returned from CT.
--- NOTE | 2019-10-10 07:09 | NUR ---
ED Nurse Note: Urine specimen collected and sent to lab.
--- NOTE | 2019-10-10 07:13 | NUR ---
ED Nurse Note: Xray at bedside.
[2019-10-10 07:25] LABS: APPEARANCE,URINE CLEAR; BILIRUBIN, URINE NEGATIVE (NEGATIVE); GLUCOSE, URINE (UA) NEGATIVE (NEGATIVE); KETONES,URINE NEGATIVE (NEGATIVE); LEUKOCYTE ESTERASE ,URINE 1+ (NEGATIVE); NITRITE,URINE NEGATIVE (NEGATIVE); PH,URINE 5 (4.5-8.0); PROTEIN,URINE 1+ (NEGATIVE); UROBILINOGEN,URINE NORMAL MG/DL (0.0-1.0)
[2019-10-10 07:30] LABS: COLOR,URINE YELLOW
--- NOTE | 2019-10-10 07:31 | NUR ---
ED Nurse Note: US at bedside.
--- NOTE | 2019-10-10 07:46 | Diagnostic Imaging Report ---
EXAM: CT Abdomen and Pelvis With Intravenous Contrast CLINICAL HISTORY: PAIN TECHNIQUE: Axial computed tomography images of the abdomen and pelvis with intravenous contrast. CTDI is 10 mGy and DLP is 559 mGy-cm. One or more of the following dose reduction techniques were used: automated exposure control, adjustment of the mA and/or kV according to patient size, use of iterative reconstruction technique. COMPARISON: No relevant prior studies available. FINDINGS: Lung bases: Unremarkable. No mass. No consolidation. ABDOMEN: Liver: Unremarkable. No mass. Gallbladder and bile ducts: Gallstones are noted. The gallbladder wall is prominent. Pancreas: There are extensive inflammatory changes around the pancreas, as well as a moderate amount of fluid. These findings are most suggestive of acute pancreatitis. There is no discrete, definable fluid collection. No ductal dilation. Spleen: Unremarkable. No splenomegaly. Adrenals: Unremarkable. No mass. Kidneys and ureters: Unremarkable. No solid mass. No hydronephrosis. Stomach and bowel: Unremarkable. No obstruction. No mucosal thickening. PELVIS: Appendix: Normal appendix. Bladder: Unremarkable. No mass. Reproductive: Unremarkable as visualized. ABDOMEN and PELVIS: Intraperitoneal space: Unremarkable. No free air. No significant fluid collection. Bones/joints: No acute fracture. No dislocation. Soft tissues: Unremarkable. Vasculature: Unremarkable. No abdominal aortic aneurysm. Lymph nodes: Unremarkable. No enlarged lymph nodes. IMPRESSION: 1. Extensive peripancreatic inflammatory changes consistent with acute pancreatitis. 2. Cholelithiasis. The gallbladder wall is prominent-cannot exclude acute cholecystitis.
[2019-10-10] MEDS ORDERED: Vancomycin 1.5gm/NS Premix 275 ML IVPB ONE (08:00)
[2019-10-10] MEDS ORDERED: Piperacillin/Tazobactam 3.375 GM in NS 110 ML IVPB ONE (08:00)
[2019-10-10] MEDS ORDERED: Nitroglycerin Subl 0.4mg tab SL PRN (08:30)
[2019-10-10 09:00] VITALS: BP 135/76
--- NOTE | 2019-10-10 09:25 | Diagnostic Imaging Report ---
EXAM: ULTRASOUND US ABD Complete CLINICAL HISTORY: Abdominal pain. COMPARISON: None TECHNIQUE: Ultrasound examination of the abdomen includes grayscale images, and color and spectral doppler analysis. FINDINGS: The liver is echogenic and fatty. Spleen is unremarkable. Multiple shadowing gallstones demonstrated. Common bile duct measures 10 mm. There is fluid around the pancreas. There is some fluid noted toward Morison's pouch as well. The kidneys are normal in size, shape and axis. Aorta and cava are within normal limits. IMPRESSION: MULTIPLE GALLSTONES WITH DILATED CBD. FLUID AROUND THE PANCREAS. PLEASE CORRELATE CLINICALLY FOR UNDERLYING PANCREATITIS. FATTY LIVER.
--- NOTE | 2019-10-10 09:28 | Diagnostic Imaging Report ---
Procedure: XRAY Chest 1v Reason for study: Shortness of breath. Comparison films: None. FINDINGS: A single one view chest is obtained. Vascularity is normal. The lung [place] are clear bilaterally. Cardiac and mediastinal silhouette are within normal limits. CP angles are sharp. The bony thorax appear unremarkable. IMPRESSION: NO ACUTE CARDIOPULMONARY DISEASE.
[2019-10-10] MEDS ORDERED: D5 1/2NS 1,000 ML IV SCH (10:00)
[2019-10-10] MEDS: Pantoprazole Inj IVP SCH (10:13)
[2019-10-10] MEDS: Heparin 5000 units/ml inj SUBQ SCH ×2 (10:14→20:48)
--- NOTE | 2019-10-10 11:31 | NUR ---
ED Nurse Note: Pt awake, alert and orientedx4, verbally responsive. Breathing even and unlabored. IVF running, tolerating well. Safety adnd comfort provided. Will cont to monitor.
--- NOTE | 2019-10-10 12:13 | NUR ---
ED Nurse Note: Report given to Holger SLAUGHTER.
--- NOTE | 2019-10-10 12:38 | NUR ---
ED Nurse Note: PT brought up to [facility] floor via gurney accompanied by market research interviewer in stable condition. Belonging list sigend off.
--- NOTE | 2019-10-10 14:04 | NUR ---
NURSE NOTES: Left message with Daniella at Dr. Joel Kidd's office requesting admission orders.
--- NOTE | 2019-10-10 14:51 | Consultation ---
History of Present Illness General Date patient seen: Oct 10, 2019 Reason for Hospitalization: Abdominal Pain Present Illness HPI This is a 34-year-old female with history of gastritis and history of diabetes who [place] [facility] with epigastric pain that started last night has been burning, constant no aggravating or alleviating factors severity is moderate patient endorses some nausea, she describes the pain is burning not sharp, no fevers no chills no shortness of breath no diarrhea patient presents for evaluation and treatment. In ED identified to have significant elevated lipase , abnormal LFTs, imaging with cholelithiasis pancreatitis and distended common bile duct. Surgery called to evaluate assist with care. Patient seen, patient evaluated, chart reviewed. Patient currently in MRI receiving an MRCP. Case discussed with GI and medical teams. Allergies: Coded Allergies: NO KNOWN ALLERGIES (Unverified Allergy, Unknown, 09/13/18) COVID-19 Screening Contact w/high risk pt: No Recent Travel to affected area: No Experienced COVID-19 symptoms?: No Medication History No Active Prescriptions or Reported Meds Patient History History Provided By: Patient, Medical Record, PMD Healthcare decision maker Resuscitation status Advanced Directive on File Past Medical/Surgical History Past Medical/Surgical History: (1) UTI (urinary tract infection) (2) Gastritis (3) Pancreatitis, gallstone Review of Systems Review of Symptoms General ROS: no weight loss or fever Psychological ROS: no depression or mood changes, no memory loss Ophthalmic ROS: no visual changes or eye irritation ENT ROS: no nasal congestion, hearing loss, dizziness Allergy and Immunology ROS: no allergic symptoms or urticaria Hematological and Lymphatic ROS: no swollen glands, unusual bleeding or bruising Endocrine ROS: no polyuria, polydipsia, weight changes, temperature intolerance Respiratory ROS: no cough, shortness of breath, or wheezing Cardiovascular ROS: no chest pain or dyspnea on exertion Gastrointestinal ROS: ++ abdominal pain, -- bright red blood in stool. Musculoskeletal ROS: no myalgias or arthralgias Neurological ROS: no TIA or stroke symptoms Dermatological ROS: no new or changing skin lesions, rashes or pruritis Physical Exam Physical Exam General appearance: alert, cooperative, no distress, appears stated age Head: Normocephalic, without obvious abnormality, atraumatic Eyes: conjunctivae/corneas clear. PERRL, EOM's intact. Fundi benign Throat: Lips, mucosa, and tongue normal. Teeth and gums normal Neck: supple, symmetrical, trachea midline, no adenopathy, thyroid: not enlarged, symmetric, no tenderness/mass/nodules, no carotid bruit and no JVD Lungs: clear to auscultation bilaterally Heart: regular rate and rhythm, S1, S2 normal, no murmur, click, rub or gallop Abdomen: soft, ++tender. Bowel sounds normal. No masses, no organomegaly Extremities: extremities normal, atraumatic, no cyanosis or edema Pulses: 2+ and symmetric Skin: Skin color, texture, turgor normal. No rashes or lesions Neurologic: Grossly normal Last 24 Hour Vital Signs Date Time Temp Pulse Resp B/P (MAP) Pulse Ox O2 Delivery O2 Flow Rate FiO2 10/10/19 12:38 98.8 80 18 130/80 98 Room Air 10/10/19 09:57 99.1 10/10/19 09:00 98.6 78 20 135/76 98 Room Air 10/10/19 06:31 99.1 10/10/19 06:30 99.1 10/10/19 06:04 99.1 85 22 132/98 98 Room Air 10/10/19 06:04 102 22 Room Air 10/10/19 05:37 99.1 102 22 132/98 (109) 98 Room Air Laboratory Tests Test 10/10/19 05:51 10/10/19 07:09 White Blood Count 11.5 K/UL (4.8-10.8) H Red Blood Count 5.26 M/UL (4.20-5.40) Hemoglobin 15.8 G/DL (12.0-16.0) Hematocrit 46.8 % (37.0-47.0) Mean Corpuscular Volume 89 FL (80-99) Mean Corpuscular Hemoglobin 29.9 PG (27.0-31.0) Mean Corpuscular Hemoglobin Concent 33.7 G/DL (32.0-36.0) Red Cell Distribution Width 11.2 % (11.6-14.8) L Platelet Count 328 K/UL (150-450) Mean Platelet Volume 8.3 FL (6.5-10.1) Neutrophils (%) (Auto) 73.3 % (45.0-75.0) Lymphocytes (%) (Auto) 21.1 % (20.0-45.0) Monocytes (%) (Auto) 4.3 % (1.0-10.0) Eosinophils (%) (Auto) 0.9 % (0.0-3.0) Basophils (%) (Auto) 0.4 % (0.0-2.0) Prothrombin Time 10.7 SEC (9.30-11.50) Prothromb Time International Ratio 1.0 (0.9-1.1) Activated Partial Thromboplast Time 22 SEC (23-33) L Sodium Level 138 MMOL/L (136-145) Potassium Level 3.6 MMOL/L (3.5-5.1) Chloride Level 102 MMOL/L (98-107) Carbon Dioxide Level 24 MMOL/L (21-32) Anion Gap 12 mmol/L (5-15) Blood Urea Nitrogen 12 mg/dL (7-18) Creatinine 0.8 MG/DL (0.55-1.30) Estimat Glomerular Filtration Rate > 60 mL/min (>60) Glucose Level 194 MG/DL (74-106) H Calcium Level 8.9 MG/DL (8.5-10.1) Total Bilirubin 2.6 MG/DL (0.2-1.0) H Direct Bilirubin 1.3 MG/DL (0.0-0.3) H Aspartate Amino Transf (AST/SGOT) 507 U/L (15-37) H Alanine Aminotransferase (ALT/SGPT) 456 U/L (12-78) H Alkaline Phosphatase 128 U/L (46-116) H Troponin I 0.000 ng/mL (0.000-0.056) Total Protein 7.7 G/DL (6.4-8.2) Albumin 4.1 G/DL (3.4-5.0) Globulin 3.6 g/dL Albumin/Globulin Ratio 1.1 (1.0-2.7) Lipase 86866 U/L (73-393) H Human Chorionic Gonadotropin, Quant 1 mIU/mL (1-6) Urine Color Yellow Urine Appearance Clear Urine pH 5 (4.5-8.0) Urine Specific [place] 1.005 (1.005-1.035) Urine Protein 1+ (NEGATIVE) H Urine Glucose (UA) Negative (NEGATIVE) Urine Ketones Negative (NEGATIVE) Urine Blood Negative (NEGATIVE) Urine Nitrite Negative (NEGATIVE) Urine Bilirubin Negative (NEGATIVE) Urine Urobilinogen Normal MG/DL (0.0-1.0) Urine Leukocyte Esterase 1+ (NEGATIVE) H Urine RBC 0 /HPF (0 - 2) Urine WBC 0-2 /HPF (0 - 2) Urine Squamous Epithelial Cells Occasional /LPF Urine Bacteria Occasional /HPF (NONE) Urine HCG, Qualitative Negative (NEGATIVE) Height (Feet): 5 Height (Inches): 5.00 Weight (Pounds): 200 Medications Current Medications Medications (Trade) Dose Ordered Sig/Yimi Route PRN Reason Start Time Stop Time Status Last Admin Dose Admin Acetaminophen (Tylenol) 650 mg Q4H PRN ORAL fever 10/10/19 08:30 11/09/19 08:29 Dextrose (Dextrose 50%) 25 ml Q30M PRN IV Hypoglycemia 10/10/19 08:30 01/08/20 08:29 Dextrose (Dextrose 50%) 50 ml Q30M PRN IV Hypoglycemia 10/10/19 08:30 01/08/20 08:29 Dextrose/Sodium Chloride 1,000 ml @ 75 mls/hr [id number] IV 10/10/19 10:00 11/09/19 09:59 10/10/19 10:13 Heparin Sodium (Porcine) (Heparin 5000 units/ml) 5,000 units EVERY 12 HOURS SUBQ 10/10/19 10:00 11/24/19 09:59 10/10/19 10:14 Iohexol (OMNIPAQUE-300 100ml) 100 ml NOW PRN INJ Radiology Procedure 10/10/19 06:00 10/12/19 05:58 Nitroglycerin (Ntg) 0.4 mg Q5M X 3 DOSES PRN SL Prn Chest Pain 10/10/19 08:30 11/09/19 08:29 Ondansetron HCl (Zofran) 4 mg Q6H PRN IVP Nausea & Vomiting 10/10/19 08:30 11/09/19 08:29 Pantoprazole (Protonix) 40 mg DAILY IVP 10/10/19 10:00 11/09/19 09:59 10/10/19 10:13 Sodium Chloride 1,000 ml @ 300 mls/hr Q3H20M IV 10/10/19 05:45 11/09/19 05:44 10/10/19 10:00 Temazepam (Restoril) 15 mg HSPRN PRN ORAL Insomnia 10/10/19 08:30 10/17/19 08:29 Assessment/Plan Problem List: (1) Gastritis ICD Codes: K29.70 - Gastritis, unspecified, without bleeding SNOMED: 5638727 (2) UTI (urinary tract infection) ICD Codes: N39.0 - Urinary tract infection, site not specified SNOMED: 96187117 (3) Pancreatitis, gallstone Assessment & Plan: 34-year-old female with acute gallstone pancreatitis. Abnormal LFTs. Possible choledocholithiasis. N.p.o. IV fluids IV pain medication PRN MRCP ordered evaluate choledocholithiasis A.m. labs Case discussed with GI and medical teams We will follow with recommendations and potential intervention is necessary thank you for let me participate in patient's care Liver: Unremarkable. No mass. Gallbladder and bile ducts: Gallstones are noted. The gallbladder wall is prominent. Pancreas: There are extensive inflammatory changes around the pancreas, as well as a moderate amount of fluid. These findings are most suggestive of acute pancreatitis. There is no discrete, definable fluid collection. No ductal dilation. Spleen: Unremarkable. No splenomegaly. Adrenals: Unremarkable. No mass. Kidneys and ureters: Unremarkable. No solid mass. No hydronephrosis. Stomach and bowel: Unremarkable. No obstruction. No mucosal thickening. PELVIS: Appendix: Normal appendix. Bladder: Unremarkable. No mass. Reproductive: Unremarkable as visualized. ABDOMEN and PELVIS: Intraperitoneal space: Unremarkable. No free air. No significant fluid collection. Bones/joints: No acute fracture. No dislocation. Soft tissues: Unremarkable. Vasculature: Unremarkable. No abdominal aortic aneurysm. Lymph nodes: Unremarkable. No enlarged lymph nodes. IMPRESSION: 1. Extensive peripancreatic inflammatory changes consistent with acute pancreatitis. 2. Cholelithiasis. The gallbladder wall is prominent-cannot exclude acute cholecystitis. ICD Codes: K85.10 - Biliary acute pancreatitis without necrosis or infection SNOMED: 81043639 Lazarus Tafoya Oct 10, 2019 14:51
--- NOTE | 2019-10-10 15:07 | NUR ---
NURSE NOTES: Left message with Daniella at Dr. Joel Kidd requesting pain medication.
[2019-10-10] MEDS ORDERED: Morphine Sulfate 2mg/ml Inj(IV/IM USE ONLY) IVP PRN (15:30)
[2019-10-10 16:00] VITALS: BP 128/76
--- NOTE | 2019-10-10 17:47 | History & Physical ---
History and Physical History & Physicial Dictated for Int Med-Dr Kidd no. [id number] Ilia Marcus MD Oct 10, 2019 17:47
--- NOTE | 2019-10-10 19:12 | Diagnostic Imaging Report ---
EXAM: MRI MRI Abdomen no Contrast TECHNIQUE: MR examination of the abdomen includes coronal T1 and fat-suppressed T2, axial T1 in and out of phase spoiled gradient sequences, and T2 sequences with and without fat suppression. Coronal 3-D MRCP sequence also obtained. CLINICAL HISTORY: Reason For Exam: ABD PAIN. COMPARISON: CT abdomen pelvis 10/10/2019 FINDINGS: Findings are similar to that noted on prior CT. Lung bases are clear. Liver and spleen are homogeneous. Gallbladder slightly distended containing multiple stones. No significant wall thickening seen. Is no intrahepatic ductal dilatation. Common bile duct is approximately 6 to 7 mm but there is no filling defect or ductal stone seen. As noted on earlier CT, there is extensive fluid and edema noted around the pancreas compatible with acute pancreatitis. Edema extends along the anterior pararenal space into the lateral conal fascia regions bilaterally. Edema also surrounds the spleen in the left upper quadrant. A small seam of free fluid also noted around the hepatic edge. Adrenals are normal. Kidneys appear unremarkable bilaterally. There is no signs of bowel distention. There is no adenopathy noted. Visualized portions of the lumbar spine appear unremarkable. IMPRESSION: ACUTE PANCREATITIS WITH EXTENSIVE SOFT TISSUE EDEMA AND FLUID AROUND THE PANCREAS, ALONG THE RETROPERITONEUM EXTENDING INTO THE LATERAL CONAL FASCIA REGION BILATERALLY. MULTIPLE STONES IDENTIFIED IN THE GALLBLADDER. NO SIGNIFICANT WALL THICKENING OF THE GALLBLADDER NOTED. NO DUCTAL STONE.
--- NOTE | 2019-10-10 19:25 | NUR ---
NURSE NOTES: Received a patient on the bed awake,a&o x4, and Verbal. pt has no sob,cough, fever and pain at the moment. Iv is intact and asymptomatic. pt is npo. Bed in the lowest position,locked and call light within reach. We will continue monitoring the pt.
--- NOTE | 2019-10-10 19:58 | NUR ---
HAND-OFF: Report given to Aniket Izaguirre RN. Patient sitting up in bed, awake and alert, watching television, on room air, no c/o pain, no SOB, bed in lowest position, call light within reach.
[2019-10-10] MEDS: NovoLOG Insulin Flexpen SUBQ SCH ×2 (20:49→20:54)
[2019-10-10 21:00] VITALS: BP 107/65
--- NOTE | 2019-10-10 22:45 | History and Physical Report ---
DATE OF ADMISSION: 10/10/2019 CHIEF COMPLAINT: The patient is a 34-year-old female, who presents with a chief complaint of abdominal pain, nausea, and vomiting. HISTORY OF PRESENT ILLNESS: The patient has a history of diabetes type 2. The patient states she began to experience epigastric pain on October 09, 2019. The patient states she has had nausea and vomiting. The patient is unable to tolerate liquids or solids. The patient presented to [place] emergency room. Initial lipase was found to be greater than 17,000. The patient is admitted with pancreatitis to rule out gallstone pancreatitis. REVIEW OF SYSTEMS: CONSTITUTIONAL: The patient denies weight loss or weight gain. The patient denies fevers or chills. HEENT: The patient denies ear or throat pain. The patient denies headache. CARDIOVASCULAR: The patient denies palpitations or chest pain. CHEST: The patient denies wheeze or shortness of breath. ABDOMINAL: The patient complains of epigastric pain as above. The patient complains of nausea with vomiting as above. The patient denies diarrhea or constipation. GENITOURINARY: The patient denies dysuria or increased frequency of urination. NEUROMUSCULAR: The patient denies seizures or generalized weakness. PAST MEDICAL HISTORY: Significant for type 2 diabetes. PAST SURGICAL HISTORY: The patient denies. CURRENT MEDICATIONS: Metformin 500 mg 1 tablet p.o. twice daily. ALLERGIES: No known drug allergies. SOCIAL HISTORY: The patient is . The patient is unemployed. The patient denies tobacco or alcohol use. PHYSICAL EXAMINATION: VITAL SIGNS: Temperature 99.1, respirations 22, pulse 102, and blood pressure 132/98. GENERAL: The patient is a well-developed and well-nourished female, in moderate distress. HEENT: Eyes, pupils are equal and responsive to light and accommodation. Extraocular movements are intact. NECK: Supple without lymphadenopathy. CHEST: Lungs are clear to auscultation bilaterally without wheezes or rales. CARDIOVASCULAR: Regular rhythm and rate. S1 and S2 are normal without murmurs, rubs, or gallops. ABDOMEN: Soft and nondistended with decreased bowel sounds. There is pain to palpation in the epigastric region. There is no rebound or guarding noted. EXTREMITIES: Negative for clubbing, cyanosis, or edema. RECTAL/GENITAL: Not performed. NEUROLOGIC: Cranial nerves II through XII are grossly intact without focal deficits. Motor strength is 5/5 bilaterally. Deep tendon reflexes are 2+ plantar. LABORATORY STUDIES: WBC 11.5, hemoglobin 15.8, hematocrit 46.8, and platelets 320,000. Sodium 138, potassium 3.6, chloride 102, CO2 24, BUN 12, creatinine 0.8, and glucose 194. Total bilirubin 2.6. Direct bilirubin 1.3. AST elevated at 105, ALT elevated at 456, and alkaline phosphatase elevated at 128. Lipase elevated at 17,125. A CT scan of the abdomen and pelvis was reported as extensive peripancreatic inflammatory changes consistent with acute pancreatitis and cholelithiasis with cholecystitis. An abdominal ultrasound demonstrated dilated common bile duct. ASSESSMENT: This is a 34-year-old female. 1. Epigastric abdominal pain. 2. Nausea with vomiting. 3. Cholecystitis. 4. Probable gallstone pancreatitis. 5. Elevated liver function tests. TREATMENT: 1. Cholecystitis/gallstone pancreatitis. A General Surgery consultation has been obtained with Dr. Tafoya. An MRCP is pending. The patient may require endoscopic retrograde cholangiopancreatography versus open cholecystectomy. We will follow recommendations of Surgery. Gastroenterology consultation has been obtained with Dr. Jackson Magana. 2. Diabetes type 2. The patient has been placed on a NovoLog sliding scale. Ilia Marcus M.D. DR: MONA JOB#: [id number] CC:
[2019-10-11] VITALS (7 sets, daily range): BP systolic 104–120; BP diastolic 60–76
[2019-10-11] MEDS: NovoLOG Insulin Flexpen SUBQ SCH ×4 (05:29→23:37)
[2019-10-11 06:09] LABS: BASOPHILS % (AUTO) 0.3 % (0.0-2.0); EOSINOPHILS % (AUTO) 0.5 % (0.0-3.0); HEMATOCRIT 41.5 % (37.0-47.0); HEMOGLOBIN 13.6 G/DL (12.0-16.0); LYMPHOCYTES % (AUTO) 15.5 % (20.0-45.0); MEAN CORPUSCULAR VOLUME 90 FL (80-99); MONOCYTES % (AUTO) 4.2 % (1.0-10.0); NEUTROPHILS % (AUTO) 79.5 % (45.0-75.0); PLATELET COUNT 247 K/UL (150-450); RED BLOOD COUNT 4.61 M/UL (4.20-5.40); RED CELL DISTRIBUTION WIDTH 11.5 % (11.6-14.8); WHITE BLOOD COUNT 8.5 K/UL (4.8-10.8)
[2019-10-11 06:42] LABS: ALANINE AMINOTRANSFERASE 300 U/L (12-78); ALBUMIN 3.1 G/DL (3.4-5.0); ALKALINE PHOSPHATASE 100 U/L (46-116); ANION GAP 8 mmol/L (5-15); ASPARTATE AMINO TRANSFERASE 125 U/L (15-37); BILIRUBIN,TOTAL 1.1 MG/DL (0.2-1.0); BLOOD UREA NITROGEN 7 mg/dL (7-18); CALCIUM 7.8 MG/DL (8.5-10.1); CARBON DIOXIDE 26 MMOL/L (21-32); CHLORIDE 105 MMOL/L (98-107); CREATININE 0.7 MG/DL (0.55-1.30); POTASSIUM 3.2 MMOL/L (3.5-5.1); SODIUM 139 MMOL/L (136-145)
[2019-10-11 06:57] LABS: AMYLASE 1381 U/L (25-115)
[2019-10-11 07:02] LABS: BILIRUBIN,DIRECT 0.2 MG/DL (0.0-0.3)
--- NOTE | 2019-10-11 07:15 | NUR ---
NURSE NOTES: Clover from Lab called to notified me critical lab result; pt amylase is 1381. Called the dr coreas and left a voice mail. I endorsed to the day shift nurse ,
--- NOTE | 2019-10-11 07:27 | NUR ---
HAND-OFF: Report given to SUKHJINDER Lopez.
--- NOTE | 2019-10-11 07:30 | NUR ---
NURSE NOTES: Report received from Aniket SLAUGHTER. Patient seen on rounds, AxOx4, not in distress, no complaints of pain. PIV on right AC patent and infusing NS @100ml/hr. Patient is NPO, reinforced. Nurse reports labs relayed critical lab value (Amylase 1381, Lipase >2000), voicemail left with MD Dr. Kidd and awaiting call back. Bed low and locked, siderails up x2, call light within reach and instructed to call nurse for assistance. Will continue to monitor.
[2019-10-11] MEDS: Pantoprazole Inj IVP SCH (08:20)
[2019-10-11] MEDS: NS w/KCl 20mEq 1000ml 1,000 ML IV SCH ×2 (08:20→18:37)
[2019-10-11] MEDS: Heparin 5000 units/ml inj SUBQ SCH ×2 (08:26→20:22)
--- NOTE | 2019-10-11 08:30 | NUR ---
NURSE NOTES: Dr. Kidd called back re: abnormal labs. Ordered to start on NS + 20meqs KCL at 100ml/hr. Revise accuchecks and sliding scale to every 6 hours. Orders noted and carried out.
--- NOTE | 2019-10-11 11:40 | General Progress Note ---
Assessment/Plan Problem List: (1) Pancreatitis, gallstone ICD Codes: K85.10 - Biliary acute pancreatitis without necrosis or infection SNOMED: 56405474 (2) UTI (urinary tract infection) ICD Codes: N39.0 - Urinary tract infection, site not specified SNOMED: 33160436 (3) Gastritis ICD Codes: K29.70 - Gastritis, unspecified, without bleeding SNOMED: 1224457 Assessment/Plan: mrcp reviewed hold ERCP npo ivf pain control improving LFTS fu surg recs Subjective Allergies: Coded Allergies: NO KNOWN ALLERGIES (Unverified Allergy, Unknown, 09/13/18) Objective Last 24 Hour Vital Signs Date Time Temp Pulse Resp B/P (MAP) Pulse Ox O2 Delivery O2 Flow Rate FiO2 10/11/19 09:00 Room Air 10/11/19 08:00 98.1 79 20 118/69 (85) 98 10/11/19 04:00 98.0 62 18 105/60 (75) 97 10/11/19 00:00 97.3 67 18 115/67 (83) 97 10/10/19 21:00 97.9 65 18 107/65 (79) 98 10/10/19 21:00 Room Air 10/10/19 16:49 98.8 10/10/19 16:00 97.2 66 20 128/76 (93) 97 10/10/19 13:50 Room Air 10/10/19 12:38 98.8 80 18 130/80 98 Room Air Intake and Output 10/10/19 10/11/19 19:00 07:00 Intake Total 2630 ml 900 ml Balance 2630 ml 900 ml Intake IV Total 2630 ml 900 ml # Voids 3 2 Laboratory Tests 10/11/19 05:30: White Blood Count 8.5, Red Blood Count 4.61, Hemoglobin 13.6, Hematocrit 41.5, Mean Corpuscular Volume 90, Mean Corpuscular Hemoglobin 29.5, Mean Corpuscular Hemoglobin Concent 32.8, Red Cell Distribution Width 11.5L, Platelet Count 247, Mean Platelet Volume 8.1, Neutrophils (%) (Auto) 79.5H, Lymphocytes (%) (Auto) 15.5L, Monocytes (%) (Auto) 4.2, Eosinophils (%) (Auto) 0.5, Basophils (%) (Auto ) 0.3, Activated Partial Thromboplast Time 25, Sodium Level 139, Potassium Level 3.2L, Chloride Level 105, Carbon Dioxide Level 26, Anion Gap 8, Blood Urea Nitrogen 7, Creatinine 0.7, Estimat Glomerular Filtration Rate > 60, Glucose Level 117H, Calcium Level 7.8L, Total Bilirubin 1.1H, Direct Bilirubin 0.2, Aspartate Amino Transf (AST/SGOT) 125H, Alanine Aminotransferase (ALT/SGPT ) 300H, Alkaline Phosphatase 100, Total Protein 6.1L, Albumin 3.1L, Globulin 3.0 , Albumin/Globulin Ratio 1.0, Amylase Level 1381*H, Lipase > 2000H Height (Feet): 5 Height (Inches): 5.00 Weight (Pounds): 200 General Appearance: no apparent distress EENT: normal ENT inspection Neck: supple Cardiovascular: normal rate Respiratory/Chest: decreased breath sounds Abdomen: soft, hypoactive bowel sounds, tender Extremities: non-tender Jackson Magana MD Oct 11, 2019 11:40
--- NOTE | 2019-10-11 13:08 | NUR ---
CASE MANAGEMENT: INITIAL REVIEW 34YR OLD FEMALE FROM HOME CC: ABDOMINAL PAIN; N/V SI:PANCREATITIS . UTI 99.1 85 22 132/98 98% ON RA LIPASE 79634 WBC 11.5 CA+ 7.8 T.NITZA 2.6 B.NITZA 1.3 AST/ALT 507/456 PTT 22 IS:IVF NS BOLUS X2 IV BENADRYL X1 IV REGLAN X1 IV PEPCID X1 IV MORPHINE SULFATE X1 IV DILAUDID X1 \: 4E MED SURG UNIT CASE MANAGEMENT: REVIEW 10/11/19 SI:PANCREATITIS . UTI . GASTRITIS 98.4 75 19 120/70 99% ON RA LIPASE >2000 AMYLASE 1381 WBC 11.5 K+3.2 CA+ 7.8 T.NITZA 2.6 B.NITZA 1.3 AST/ALT 507/456 PTT 22 IS:IV NS @10ML X1 HEPARIN SQ BID IV PROTONIX QD IV MORPHINE SULFATE Q2HR/PRN \: 4E MED SURG UNIT PLAN: AM LAB ERCP ON HOLD PAIN CONTROL MONITOR LFT'S
--- NOTE | 2019-10-11 13:50 | NUR ---
NURSE NOTES: Received report from Therese, out-going [facility] pt is in the bed alert and awake, no acute distress noted at this time. call light is within reach.
--- NOTE | 2019-10-11 13:55 | NUR ---
HAND-OFF: Report given to Hermes SLAUGHTER.
--- NOTE | 2019-10-11 14:55 | NUR ---
CASE MANAGEMENT: INITIAL REVIEW 34YR OLD FEMALE FROM HOME CC: ABDOMINAL PAIN; N/V SI:PANCREATITIS . UTI . CHOLELITHIASIS 99.1 85 22 132/98 98% ON RA LIPASE 72898 WBC 11.5 CA+ 7.8 T.NITZA 2.6 B.NITZA 1.3 AST/ALT 507/456 PTT 22 IS:IVF NS BOLUS X2 IV VANCOMYCIN X1 IV ZOSYN X1 IV BENADRYL X1 IV REGLAN X1 IV PEPCID X1 IV ZOFRAN X1 IV MORPHINE SULFATE X1 IV DILAUDID X2 XRAY Chest 1v- NO ACUTE CARDIOPULMONARY DISEASE. CT Abdomen Pelvis w/Contrast- Extensive peripancreatic inflammatory changes consistent with acute pancreatitis. Cholelithiasis. The gallbladder wall is prominent-cannot exclude acute cholecystitis. US ABD Complete- MULTIPLE GALLSTONES WITH DILATED CBD.FLUID AROUND THE PANCREAS. PLEASE CORRELATE CLINICALLY FOR UNDERLYING PANCREATITIS. FATTY LIVER. MRI Abdomen no Contrast-ACUTE PANCREATITIS WITH EXTENSIVE SOFT TISSUE EDEMA AND FLUID AROUND THE PANCREAS,ALONG THE RETROPERITONEUM EXTENDING INTO THE LATERAL CONAL FASCIA REGION BILATERALLY.MULTIPLE STONES IDENTIFIED IN THE GALLBLADDER. NO SIGNIFICANT WALL THICKENING OF THE GALLBLADDER NOTED. NO DUCTAL STONE. \: 4E MED SURG UNIT CASE MANAGEMENT: REVIEW 10/11/19 SI:PANCREATITIS . UTI . GASTRITIS 98.4 75 19 120/70 99% ON RA LIPASE >2000 AMYLASE 1381 WBC 11.5 K+3.2 CA+ 7.8 T.NITZA 2.6 B.NITZA 1.3 AST/ALT 507/456 PTT 22 IS:IV NS @10ML X1 HEPARIN SQ BID IV PROTONIX QD IV MORPHINE SULFATE Q2HR/PRN \: 4E MED SURG UNIT PLAN: AM LAB ERCP ON HOLD PAIN CONTROL MONITOR LFT'S
--- NOTE | 2019-10-11 18:25 | NUR ---
NURSE NOTES: Dr. Tafoya assessed patient and ordered to d/c NPO status and start pt on clear liquid diet; order noted and communicated to dietary department.
--- NOTE | 2019-10-11 19:31 | NUR ---
HAND-OFF: Report given to
--- NOTE | 2019-10-11 19:32 | Surgery Progress Note ---
Surgery Progress Note Subjective Symptoms: improved, voiding well, passing flatus, pain decreased Objective Last 24 Hour Vital Signs Date Time Temp Pulse Resp B/P (MAP) Pulse Ox O2 Delivery O2 Flow Rate FiO2 10/11/19 16:00 99.0 80 21 119/76 (90) 97 10/11/19 12:00 98.4 75 19 120/70 (87) 99 10/11/19 09:00 Room Air 10/11/19 08:00 98.1 79 20 118/69 (85) 98 10/11/19 04:00 98.0 62 18 105/60 (75) 97 10/11/19 00:00 97.3 67 18 115/67 (83) 97 10/10/19 21:00 97.9 65 18 107/65 (79) 98 10/10/19 21:00 Room Air I&O Intake and Output 10/10/19 10/11/19 19:00 07:00 Intake Total 2630 ml 1000 ml Balance 2630 ml 1000 ml Intake IV Total 2630 ml 1000 ml # Voids 3 2 Cardiovascular: RSR Respiratory: clear Abdomen: soft, non-tender, present bowel sounds, non-distended Extremities: no edema, no tenderness, no cyanosis Laboratory Tests Test 10/11/19 05:30 White Blood Count 8.5 K/UL (4.8-10.8) Red Blood Count 4.61 M/UL (4.20-5.40) Hemoglobin 13.6 G/DL (12.0-16.0) Hematocrit 41.5 % (37.0-47.0) Mean Corpuscular Volume 90 FL (80-99) Mean Corpuscular Hemoglobin 29.5 PG (27.0-31.0) Mean Corpuscular Hemoglobin Concent 32.8 G/DL (32.0-36.0) Red Cell Distribution Width 11.5 % (11.6-14.8) L Platelet Count 247 K/UL (150-450) Mean Platelet Volume 8.1 FL (6.5-10.1) Neutrophils (%) (Auto) 79.5 % (45.0-75.0) H Lymphocytes (%) (Auto) 15.5 % (20.0-45.0) L Monocytes (%) (Auto) 4.2 % (1.0-10.0) Eosinophils (%) (Auto) 0.5 % (0.0-3.0) Basophils (%) (Auto) 0.3 % (0.0-2.0) Activated Partial Thromboplast Time 25 SEC (23-33) Sodium Level 139 MMOL/L (136-145) Potassium Level 3.2 MMOL/L (3.5-5.1) L Chloride Level 105 MMOL/L (98-107) Carbon Dioxide Level 26 MMOL/L (21-32) Anion Gap 8 mmol/L (5-15) Blood Urea Nitrogen 7 mg/dL (7-18) Creatinine 0.7 MG/DL (0.55-1.30) Estimat Glomerular Filtration Rate > 60 mL/min (>60) Glucose Level 117 MG/DL (74-106) H Calcium Level 7.8 MG/DL (8.5-10.1) L Total Bilirubin 1.1 MG/DL (0.2-1.0) H Direct Bilirubin 0.2 MG/DL (0.0-0.3) Aspartate Amino Transf (AST/SGOT) 125 U/L (15-37) H Alanine Aminotransferase (ALT/SGPT) 300 U/L (12-78) H Alkaline Phosphatase 100 U/L (46-116) Total Protein 6.1 G/DL (6.4-8.2) L Albumin 3.1 G/DL (3.4-5.0) L Globulin 3.0 g/dL Albumin/Globulin Ratio 1.0 (1.0-2.7) Amylase Level 1381 U/L (25-115) *H Lipase > 2000 U/L (73-393) H Plan Problems: (1) Gastritis (2) UTI (urinary tract infection) (3) Pancreatitis, gallstone Assessment & Plan: 34-year-old female with acute gallstone pancreatitis. Abnormal LFTs. Possible choledocholithiasis. N.p.o. IV fluids IV pain medication PRN MRCP ordered evaluate choledocholithiasis A.m. labs Case discussed with GI and medical teams We will follow with recommendations and potential intervention is necessary thank you for let me participate in patient's care MRCP noted no cbd stone lft's and bili improved pain improved start trial oral diet if okay and without pain advance as tolerated Liver: Unremarkable. No mass. Gallbladder and bile ducts: Gallstones are noted. The gallbladder wall is prominent. Pancreas: There are extensive inflammatory changes around the pancreas, as well as a moderate amount of fluid. These findings are most suggestive of acute pancreatitis. There is no discrete, definable fluid collection. No ductal dilation. Spleen: Unremarkable. No splenomegaly. Adrenals: Unremarkable. No mass. Kidneys and ureters: Unremarkable. No solid mass. No hydronephrosis. Stomach and bowel: Unremarkable. No obstruction. No mucosal thickening. PELVIS: Appendix: Normal appendix. Bladder: Unremarkable. No mass. Reproductive: Unremarkable as visualized. ABDOMEN and PELVIS: Intraperitoneal space: Unremarkable. No free air. No significant fluid collection. Bones/joints: No acute fracture. No dislocation. Soft tissues: Unremarkable. Vasculature: Unremarkable. No abdominal aortic aneurysm. Lymph nodes: Unremarkable. No enlarged lymph nodes. IMPRESSION: 1. Extensive peripancreatic inflammatory changes consistent with acute pancreatitis. 2. Cholelithiasis. The gallbladder wall is prominent-cannot exclude acute cholecystitis. Lazarus Tafoya Oct 11, 2019 19:32
--- NOTE | 2019-10-11 19:35 | Internal Med Progress Note ---
Subjective Physician Name Joel Kidd Attending Physician Joel Kidd MD Current Medications Medications (Trade) Dose Ordered Sig/Yimi Route PRN Reason Start Time Stop Time Status Last Admin Dose Admin Acetaminophen (Tylenol) 650 mg Q4H PRN ORAL fever 10/10/19 08:30 11/09/19 08:29 Dextrose (Dextrose 50%) 25 ml Q30M PRN IV Hypoglycemia 10/10/19 17:45 01/08/20 17:44 Dextrose (Dextrose 50%) 50 ml Q30M PRN IV Hypoglycemia 10/10/19 17:45 01/08/20 17:44 Heparin Sodium (Porcine) (Heparin 5000 units/ml) 5,000 units EVERY 12 HOURS SUBQ 10/10/19 10:00 11/24/19 09:59 10/11/19 08:26 Insulin Aspart (NovoLOG) EVERY 6 HOURS SUBQ 10/11/19 12:00 01/08/20 20:59 Iohexol (OMNIPAQUE-300 100ml) 100 ml NOW PRN INJ Radiology Procedure 10/10/19 06:00 10/12/19 05:58 Morphine Sulfate (Morphine Sulfate) 2 mg Q2H PRN IVP For Pain 10/10/19 15:30 10/17/19 15:29 10/10/19 16:19 Nitroglycerin (Ntg) 0.4 mg Q5M X 3 DOSES PRN SL Prn Chest Pain 10/10/19 08:30 11/09/19 08:29 Ondansetron HCl (Zofran) 4 mg Q6H PRN IVP Nausea & Vomiting 10/10/19 16:00 11/09/19 15:59 Pantoprazole (Protonix) 40 mg DAILY IVP 10/10/19 10:00 11/09/19 09:59 10/11/19 08:20 Potassium Chloride/Sodium Chloride 1,000 ml @ 100 mls/hr Q10H IV 10/11/19 09:00 11/10/19 08:59 10/11/19 18:37 Temazepam (Restoril) 15 mg HSPRN PRN ORAL Insomnia 10/10/19 08:30 10/17/19 08:29 Allergies: Coded Allergies: NO KNOWN ALLERGIES (Unverified Allergy, Unknown, 09/13/18) Subjective awake, alert, responsive, No CP, No SOB, No abdominal pain, Lipase increase > 2000, NPO Objective Last Vital Signs Date Time Temp Pulse Resp B/P (MAP) Pulse Ox O2 Delivery O2 Flow Rate FiO2 10/11/19 16:00 99.0 80 21 119/76 (90) 97 10/11/19 09:00 Room Air Laboratory Tests Test 10/11/19 05:30 White Blood Count 8.5 K/UL (4.8-10.8) Red Blood Count 4.61 M/UL (4.20-5.40) Hemoglobin 13.6 G/DL (12.0-16.0) Hematocrit 41.5 % (37.0-47.0) Mean Corpuscular Volume 90 FL (80-99) Mean Corpuscular Hemoglobin 29.5 PG (27.0-31.0) Mean Corpuscular Hemoglobin Concent 32.8 G/DL (32.0-36.0) Red Cell Distribution Width 11.5 % (11.6-14.8) L Platelet Count 247 K/UL (150-450) Mean Platelet Volume 8.1 FL (6.5-10.1) Neutrophils (%) (Auto) 79.5 % (45.0-75.0) H Lymphocytes (%) (Auto) 15.5 % (20.0-45.0) L Monocytes (%) (Auto) 4.2 % (1.0-10.0) Eosinophils (%) (Auto) 0.5 % (0.0-3.0) Basophils (%) (Auto) 0.3 % (0.0-2.0) Activated Partial Thromboplast Time 25 SEC (23-33) Sodium Level 139 MMOL/L (136-145) Potassium Level 3.2 MMOL/L (3.5-5.1) L Chloride Level 105 MMOL/L (98-107) Carbon Dioxide Level 26 MMOL/L (21-32) Anion Gap 8 mmol/L (5-15) Blood Urea Nitrogen 7 mg/dL (7-18) Creatinine 0.7 MG/DL (0.55-1.30) Estimat Glomerular Filtration Rate > 60 mL/min (>60) Glucose Level 117 MG/DL (74-106) H Calcium Level 7.8 MG/DL (8.5-10.1) L Total Bilirubin 1.1 MG/DL (0.2-1.0) H Direct Bilirubin 0.2 MG/DL (0.0-0.3) Aspartate Amino Transf (AST/SGOT) 125 U/L (15-37) H Alanine Aminotransferase (ALT/SGPT) 300 U/L (12-78) H Alkaline Phosphatase 100 U/L (46-116) Total Protein 6.1 G/DL (6.4-8.2) L Albumin 3.1 G/DL (3.4-5.0) L Globulin 3.0 g/dL Albumin/Globulin Ratio 1.0 (1.0-2.7) Amylase Level 1381 U/L (25-115) *H Lipase > 2000 U/L (73-393) H Intake and Output 10/10/19 10/11/19 19:00 07:00 Intake Total 2630 ml 1000 ml Balance 2630 ml 1000 ml Intake IV Total 2630 ml 1000 ml # Voids 3 2 Objective General: No acute distress, awake and alert HEENT: NCAT, sclera anicteric, PERRL, EOMI. Neck: Supple, no significant jugular venous distention, Lungs: Good inspiratory effort, clear to auscultation bilaterally, no Wheeze or Rales. Heart: Regular rate and rhythm, normal S1/S2, no murmurs/gallops Abdomen: soft, nontender, nondistended. + bowel sounds, Morbid Obesity. / Rectal: Refused and deferred. Extremities: No Cyanosis , clubbing or edema. Neuro: A&O x 3, Able to move all extremities Skin: warm, no rashes or lesions Psych: Normal mood and affect Assessment/Plan Assessment/Plan ASSESSMENT: This is a 34-year-old female. 1. Epigastric abdominal pain. 2. Nausea with vomiting. 3. Cholecystitis. 4. Probable gallstone pancreatitis. 5. Elevated liver function tests. TREATMENT: 1. Cholecystitis/gallstone pancreatitis. A General Surgery consultation has been obtained with Dr. Tafoya. An MRCP is pending. The patient may require endoscopic retrograde cholangiopancreatography versus open cholecystectomy. We will follow recommendations of Surgery. Gastroenterology consultation has been obtained with Dr. Jackson Magana. 2. Diabetes type 2. The patient has been placed on a NovoLog sliding scale. NPO IVF F/U with Labs in AM. Joel Kidd MD Oct 11, 2019 19:35
--- NOTE | 2019-10-11 19:52 | NUR ---
NURSE NOTES: Received report from SUKHJINDER Mirza. Pt sitting on the bed, AAO x 4, on room air. IVF running. No labored breathing, no acute distress noted. Pt is ambulatory. No c/o pain. Bed locked, lowest position, alarm on, side rails up, call light within reach. Will continue to monitor.
[2019-10-12 04:00] VITALS: BP 111/64
[2019-10-12] MEDS: NS w/KCl 20mEq 1000ml 1,000 ML IV SCH ×2 (04:58→15:00)
[2019-10-12] MEDS: NovoLOG Insulin Flexpen SUBQ SCH ×2 (05:27→11:10)
[2019-10-12 05:56] LABS: BASOPHILS % (AUTO) 0.5 % (0.0-2.0); EOSINOPHILS % (AUTO) 1.1 % (0.0-3.0); HEMOGLOBIN 12.1 G/DL (12.0-16.0); LYMPHOCYTES % (AUTO) 17.5 % (20.0-45.0); MEAN CORPUSCULAR VOLUME 90 FL (80-99); MONOCYTES % (AUTO) 5.3 % (1.0-10.0); NEUTROPHILS % (AUTO) 75.5 % (45.0-75.0); PLATELET COUNT 209 K/UL (150-450); RED BLOOD COUNT 4.02 M/UL (4.20-5.40); RED CELL DISTRIBUTION WIDTH 11.4 % (11.6-14.8); WHITE BLOOD COUNT 7.7 K/UL (4.8-10.8)
[2019-10-12 06:20] LABS: ALANINE AMINOTRANSFERASE 159 U/L (12-78); ALBUMIN/GLOBULIN RATIO 0.9 (1.0-2.7); ALKALINE PHOSPHATASE 88 U/L (46-116); ANION GAP 8 mmol/L (5-15); ASPARTATE AMINO TRANSFERASE 53 U/L (15-37); BILIRUBIN,TOTAL 1.1 MG/DL (0.2-1.0); BLOOD UREA NITROGEN 9 mg/dL (7-18); CALCIUM 7.7 MG/DL (8.5-10.1); CARBON DIOXIDE 24 MMOL/L (21-32); CHLORIDE 104 MMOL/L (98-107); CREATININE 0.6 MG/DL (0.55-1.30); POTASSIUM 3.4 MMOL/L (3.5-5.1); SODIUM 136 MMOL/L (136-145)
[2019-10-12 06:23] LABS: AMYLASE 578 U/L (25-115)
[2019-10-12 06:24] LABS: BILIRUBIN,DIRECT 0.2 MG/DL (0.0-0.3)
--- NOTE | 2019-10-12 06:28 | NUR ---
NURSE NOTES: Received call from lab for abnormal results amylase 578, lipase 1764. Left message Dr. Kidd. Addendum: 10/12/19 at 0643 by MANUEL CASAS RN RN No new order received.
--- NOTE | 2019-10-12 07:15 | General Progress Note ---
Assessment/Plan Problem List: (1) Pancreatitis, gallstone ICD Codes: K85.10 - Biliary acute pancreatitis without necrosis or infection SNOMED: 33328595 (2) UTI (urinary tract infection) ICD Codes: N39.0 - Urinary tract infection, site not specified SNOMED: 33163926 (3) Gastritis ICD Codes: K29.70 - Gastritis, unspecified, without bleeding SNOMED: 0426113 Assessment/Plan: mrcp reviewed hold ERCP ivf pain control improving LFTS fu surg recs advance diet Subjective Allergies: Coded Allergies: NO KNOWN ALLERGIES (Unverified Allergy, Unknown, 09/13/18) Objective Last 24 Hour Vital Signs Date Time Temp Pulse Resp B/P (MAP) Pulse Ox O2 Delivery O2 Flow Rate FiO2 10/12/19 04:00 98.2 76 18 111/64 (80) 98 10/11/19 23:38 99.0 66 20 106/71 (83) 99 10/11/19 21:00 Room Air 10/11/19 20:00 99.3 69 20 104/75 (85) 99 10/11/19 16:00 99.0 80 21 119/76 (90) 97 10/11/19 12:00 98.4 75 19 120/70 (87) 99 10/11/19 09:00 Room Air 10/11/19 08:00 98.1 79 20 118/69 (85) 98 Intake and Output 10/11/19 10/12/19 19:00 07:00 Intake Total 800 ml Balance 800 ml Intake IV Total 800 ml # Voids 2 3 Laboratory Tests 10/12/19 05:10: White Blood Count 7.7, Red Blood Count 4.02L, Hemoglobin 12.1, Hematocrit 36.0L , Mean Corpuscular Volume 90, Mean Corpuscular Hemoglobin 30.1, Mean Corpuscular Hemoglobin Concent 33.6, Red Cell Distribution Width 11.4L, Platelet Count 209, Mean Platelet Volume 8.2, Neutrophils (%) (Auto) 75.5H, Lymphocytes (%) (Auto) 17.5L, Monocytes (%) (Auto) 5.3, Eosinophils (%) (Auto) 1.1, Basophils (%) (Auto) 0.5, Sodium Level 136, Potassium Level 3.4L, Chloride Level 104, Carbon Dioxide Level 24, Anion Gap 8, Blood Urea Nitrogen 9, Creatinine 0.6, Estimat Glomerular Filtration Rate > 60, Glucose Level 88, Calcium Level 7.7L, Total Bilirubin 1.1H, Direct Bilirubin 0.2, Aspartate Amino Transf (AST/SGOT) 53H, Alanine Aminotransferase (ALT/SGPT) 159H, Alkaline Phosphatase 88, Total Protein 6.2L, Albumin 3.0L, Globulin 3.2, Albumin/ Globulin Ratio 0.9L, Amylase Level 578*H, Lipase 1764H Height (Feet): 5 Height (Inches): 5.00 Weight (Pounds): 200 General Appearance: alert EENT: normal ENT inspection Neck: supple Cardiovascular: normal rate Respiratory/Chest: decreased breath sounds Abdomen: soft, hypoactive bowel sounds Extremities: non-tender Jackson Magana MD Oct 12, 2019 07:14
--- NOTE | 2019-10-12 07:25 | NUR ---
NURSE NOTES: Received report from SUKHJINDER Chi. Patient is A/A/O x 4, on room air. ambulatory with steady gait. IV access patent and intact. IVF infusing well. No labored breathing, no acute distress noted. No c/o pain/discomfort noted. Bed locked, lowest position, bed alarm on, siderails upx2, call light within reach. Will continue to monitor.
--- NOTE | 2019-10-12 07:39 | NUR ---
HAND-OFF: Report given to CRISTY Horne.
[2019-10-12 08:00] VITALS: BP 109/64
[2019-10-12] MEDS: Heparin 5000 units/ml inj SUBQ SCH (08:24)
--- NOTE | 2019-10-12 09:30 | NUR ---
NURSE NOTES: DR DAO MADE AWARE OF THE K+3.4. NEW ORDER OBTAINED. WILL CONT TO MONITOR.
--- NOTE | 2019-10-12 11:42 | Surgery Progress Note ---
Surgery Progress Note Subjective Symptoms: improved, pain absent, tolerating diet, voiding well, passing flatus Objective Last 24 Hour Vital Signs Date Time Temp Pulse Resp B/P (MAP) Pulse Ox O2 Delivery O2 Flow Rate FiO2 10/12/19 09:00 Room Air 10/12/19 08:00 98.1 74 20 109/64 (79) 97 10/12/19 04:00 98.2 76 18 111/64 (80) 98 10/11/19 23:38 99.0 66 20 106/71 (83) 99 10/11/19 21:00 Room Air 10/11/19 20:00 99.3 69 20 104/75 (85) 99 10/11/19 16:00 99.0 80 21 119/76 (90) 97 10/11/19 12:00 98.4 75 19 120/70 (87) 99 I&O Intake and Output 10/11/19 10/12/19 19:00 07:00 Intake Total 800 ml 100 ml Balance 800 ml 100 ml Intake IV Total 800 ml 100 ml # Voids 2 3 Cardiovascular: RSR Respiratory: clear Abdomen: soft, non-tender, present bowel sounds Extremities: no edema, no tenderness, no cyanosis Laboratory Tests Test 10/12/19 05:10 White Blood Count 7.7 K/UL (4.8-10.8) Red Blood Count 4.02 M/UL (4.20-5.40) L Hemoglobin 12.1 G/DL (12.0-16.0) Hematocrit 36.0 % (37.0-47.0) L Mean Corpuscular Volume 90 FL (80-99) Mean Corpuscular Hemoglobin 30.1 PG (27.0-31.0) Mean Corpuscular Hemoglobin Concent 33.6 G/DL (32.0-36.0) Red Cell Distribution Width 11.4 % (11.6-14.8) L Platelet Count 209 K/UL (150-450) Mean Platelet Volume 8.2 FL (6.5-10.1) Neutrophils (%) (Auto) 75.5 % (45.0-75.0) H Lymphocytes (%) (Auto) 17.5 % (20.0-45.0) L Monocytes (%) (Auto) 5.3 % (1.0-10.0) Eosinophils (%) (Auto) 1.1 % (0.0-3.0) Basophils (%) (Auto) 0.5 % (0.0-2.0) Sodium Level 136 MMOL/L (136-145) Potassium Level 3.4 MMOL/L (3.5-5.1) L Chloride Level 104 MMOL/L (98-107) Carbon Dioxide Level 24 MMOL/L (21-32) Anion Gap 8 mmol/L (5-15) Blood Urea Nitrogen 9 mg/dL (7-18) Creatinine 0.6 MG/DL (0.55-1.30) Estimat Glomerular Filtration Rate > 60 mL/min (>60) Glucose Level 88 MG/DL (74-106) Calcium Level 7.7 MG/DL (8.5-10.1) L Total Bilirubin 1.1 MG/DL (0.2-1.0) H Direct Bilirubin 0.2 MG/DL (0.0-0.3) Aspartate Amino Transf (AST/SGOT) 53 U/L (15-37) H Alanine Aminotransferase (ALT/SGPT) 159 U/L (12-78) H Alkaline Phosphatase 88 U/L (46-116) Total Protein 6.2 G/DL (6.4-8.2) L Albumin 3.0 G/DL (3.4-5.0) L Globulin 3.2 g/dL Albumin/Globulin Ratio 0.9 (1.0-2.7) L Amylase Level 578 U/L (25-115) *H Lipase 1764 U/L (73-393) H Plan Problems: (1) Gastritis (2) UTI (urinary tract infection) (3) Pancreatitis, gallstone Assessment & Plan: 34-year-old female with acute gallstone pancreatitis. Abnormal LFTs. Possible choledocholithiasis. N.p.o. IV fluids IV pain medication PRN MRCP ordered evaluate choledocholithiasis A.m. labs Case discussed with GI and medical teams We will follow with recommendations and potential intervention is necessary thank you for let me participate in patient's care MRCP noted no cbd stone lft's and bili improved pain improved start trial oral diet if okay and without pain advance as tolerated adv diet d/c plan f/u with pcp and surgeon outpatient for elective doug Liver: Unremarkable. No mass. Gallbladder and bile ducts: Gallstones are noted. The gallbladder wall is prominent. Pancreas: There are extensive inflammatory changes around the pancreas, as well as a moderate amount of fluid. These findings are most suggestive of acute pancreatitis. There is no discrete, definable fluid collection. No ductal dilation. Spleen: Unremarkable. No splenomegaly. Adrenals: Unremarkable. No mass. Kidneys and ureters: Unremarkable. No solid mass. No hydronephrosis. Stomach and bowel: Unremarkable. No obstruction. No mucosal thickening. PELVIS: Appendix: Normal appendix. Bladder: Unremarkable. No mass. Reproductive: Unremarkable as visualized. ABDOMEN and PELVIS: Intraperitoneal space: Unremarkable. No free air. No significant fluid collection. Bones/joints: No acute fracture. No dislocation. Soft tissues: Unremarkable. Vasculature: Unremarkable. No abdominal aortic aneurysm. Lymph nodes: Unremarkable. No enlarged lymph nodes. IMPRESSION: 1. Extensive peripancreatic inflammatory changes consistent with acute pancreatitis. 2. Cholelithiasis. The gallbladder wall is prominent-cannot exclude acute cholecystitis. Lazarus Tafoya Oct 12, 2019 11:42
[2019-10-12 11:54] VITALS: BP 119/75
--- NOTE | 2019-10-12 13:41 | Internal Med Progress Note ---
Subjective Date of Service: Oct 12, 2019 Physician Name Ilia Marcus Attending Physician Joel Kidd MD Current Medications Medications (Trade) Dose Ordered Sig/Yimi Route PRN Reason Start Time Stop Time Status Last Admin Dose Admin Acetaminophen (Tylenol) 650 mg Q4H PRN ORAL fever 10/10/19 08:30 11/09/19 08:29 Dextrose (Dextrose 50%) 25 ml Q30M PRN IV Hypoglycemia 10/10/19 17:45 01/08/20 17:44 Dextrose (Dextrose 50%) 50 ml Q30M PRN IV Hypoglycemia 10/10/19 17:45 01/08/20 17:44 Heparin Sodium (Porcine) (Heparin 5000 units/ml) 5,000 units EVERY 12 HOURS SUBQ 10/10/19 10:00 11/24/19 09:59 10/12/19 08:24 Insulin Aspart (NovoLOG) EVERY 6 HOURS SUBQ 10/11/19 12:00 01/08/20 20:59 Morphine Sulfate (Morphine Sulfate) 2 mg Q2H PRN IVP For Pain 10/10/19 15:30 10/17/19 15:29 10/10/19 16:19 Nitroglycerin (Ntg) 0.4 mg Q5M X 3 DOSES PRN SL Prn Chest Pain 10/10/19 08:30 11/09/19 08:29 Ondansetron HCl (Zofran) 4 mg Q6H PRN IVP Nausea & Vomiting 10/10/19 16:00 11/09/19 15:59 Pantoprazole (Protonix) 40 mg DAILY ORAL 10/12/19 09:00 11/11/19 08:59 10/12/19 08:42 Potassium Chloride/Sodium Chloride 1,000 ml @ 100 mls/hr Q10H IV 10/11/19 09:00 11/10/19 08:59 10/12/19 04:58 Temazepam (Restoril) 15 mg HSPRN PRN ORAL Insomnia 10/10/19 08:30 10/17/19 08:29 Allergies: Coded Allergies: NO KNOWN ALLERGIES (Unverified Allergy, Unknown, 09/13/18) ROS Limited/Unobtainable: No Constitutional: Reports: no symptoms HEENT: Reports: no symptoms Cardiovascular: Reports: no symptoms Respiratory: Reports: no symptoms Gastrointestinal/Abdominal: Reports: abdominal pain Genitourinary: Reports: no symptoms Neurologic/Psychiatric: Reports: no symptoms Subjective 34 YO F admitted with epigastric pain. Now gallstone pancreatitis. Cover for Int Med-DR Kidd. Objective Last Vital Signs Date Time Temp Pulse Resp B/P (MAP) Pulse Ox O2 Delivery O2 Flow Rate FiO2 10/12/19 11:54 98.1 80 19 119/75 (90) 98 10/12/19 09:00 Room Air Laboratory Tests Test 10/12/19 05:10 White Blood Count 7.7 K/UL (4.8-10.8) Red Blood Count 4.02 M/UL (4.20-5.40) L Hemoglobin 12.1 G/DL (12.0-16.0) Hematocrit 36.0 % (37.0-47.0) L Mean Corpuscular Volume 90 FL (80-99) Mean Corpuscular Hemoglobin 30.1 PG (27.0-31.0) Mean Corpuscular Hemoglobin Concent 33.6 G/DL (32.0-36.0) Red Cell Distribution Width 11.4 % (11.6-14.8) L Platelet Count 209 K/UL (150-450) Mean Platelet Volume 8.2 FL (6.5-10.1) Neutrophils (%) (Auto) 75.5 % (45.0-75.0) H Lymphocytes (%) (Auto) 17.5 % (20.0-45.0) L Monocytes (%) (Auto) 5.3 % (1.0-10.0) Eosinophils (%) (Auto) 1.1 % (0.0-3.0) Basophils (%) (Auto) 0.5 % (0.0-2.0) Sodium Level 136 MMOL/L (136-145) Potassium Level 3.4 MMOL/L (3.5-5.1) L Chloride Level 104 MMOL/L (98-107) Carbon Dioxide Level 24 MMOL/L (21-32) Anion Gap 8 mmol/L (5-15) Blood Urea Nitrogen 9 mg/dL (7-18) Creatinine 0.6 MG/DL (0.55-1.30) Estimat Glomerular Filtration Rate > 60 mL/min (>60) Glucose Level 88 MG/DL (74-106) Calcium Level 7.7 MG/DL (8.5-10.1) L Total Bilirubin 1.1 MG/DL (0.2-1.0) H Direct Bilirubin 0.2 MG/DL (0.0-0.3) Aspartate Amino Transf (AST/SGOT) 53 U/L (15-37) H Alanine Aminotransferase (ALT/SGPT) 159 U/L (12-78) H Alkaline Phosphatase 88 U/L (46-116) Total Protein 6.2 G/DL (6.4-8.2) L Albumin 3.0 G/DL (3.4-5.0) L Globulin 3.2 g/dL Albumin/Globulin Ratio 0.9 (1.0-2.7) L Amylase Level 578 U/L (25-115) *H Lipase 1764 U/L (73-393) H Intake and Output 10/11/19 10/12/19 19:00 07:00 Intake Total 800 ml 100 ml Balance 800 ml 100 ml Intake IV Total 800 ml 100 ml # Voids 2 3 Objective PHYSICAL EXAMINATION: GENERAL: The patient is a well-developed and well-nourished female, in moderate distress. HEENT: Eyes, pupils are equal and responsive to light and accommodation. Extraocular movements are intact. NECK: Supple without lymphadenopathy. CHEST: Lungs are clear to auscultation bilaterally without wheezes or rales. CARDIOVASCULAR: Regular rhythm and rate. S1 and S2 are normal without murmurs, rubs, or gallops. ABDOMEN: Soft and nondistended with decreased bowel sounds. There is pain to palpation in the epigastric region. There is no rebound or guarding noted. EXTREMITIES: Negative for clubbing, cyanosis, or edema. RECTAL/GENITAL: Not performed. NEUROLOGIC: Cranial nerves II through XII are grossly intact without focal deficits. Motor strength is 5/5 bilaterally. Deep tendon reflexes are 2+ plantar. Assessment/Plan Assessment/Plan ASSESSMENT: This is a 34-year-old female. 1. Epigastric abdominal pain. 2. Nausea with vomiting. 3. Cholecystitis. 4. gallstone pancreatitis. 5. Elevated liver function tests. TREATMENT: 1. Cholecystitis/gallstone pancreatitis. A General Surgery consultation has been obtained with Dr. Tafoya. We will follow recommendations of Surgery. An MRCP = no ductal stone visualized. 2. A Gastroenterology consultation has been obtained with Dr. Jackson Magana. 3. Diabetes type 2. The patient has been placed on a NovoLog sliding scale. 4. Advance diet to full liquid Ilia Marcus MD Oct 12, 2019 13:41
--- NOTE | 2019-10-12 14:21 | NUR ---
CASE MANAGEMENT: REVIEW 10/12/2019 SI:HTN CHRONIC KIDNEY DISEASE VS: T 98.1 HR 80 RR 19 B/P 119/75 SATS 98% ON RA LABS: K 3.4 CA 7.7 TBILI 1.1 AST 53 ALT 159 AMYLASE 578 LIPASE 1764 IS:KCL @ 100 ML/HR INSULIN ASPART SUBQ Q6H PROTONIX PO QD MED/SURG DCP: HOME PLAN OF CARE: TO BE DISCHARGED TODAY Addendum: 10/12/19 at 1429 by Renay Larios CASE MANAGEMENT: REVIEW 10/12/2019 SI:PANCREATITIS VS: T 98.1 HR 80 RR 19 B/P 119/75 SATS 98% ON RA LABS: K 3.4 CA 7.7 TBILI 1.1 AST 53 ALT 159 AMYLASE 578 LIPASE 1764 IS:KCL @ 100 ML/HR INSULIN ASPART SUBQ Q6H PROTONIX PO QD MED/SURG DCP: HOME PLAN OF CARE: TO BE DISCHARGED TODAY
--- NOTE | 2019-10-12 15:22 | NUR ---
NURSE NOTES: D/C HOME WITH INSTRUCTIONS. REMOVED IV HEPLOCK. SPOUSE PROVIDED TRANSPORTATION. NO ACUTE RESP DISTRESS NOTED. VERIFIED HOME ADDRESS. IN STABLE CONDITION. WILL CONT TO MONITOR.
--- NOTE | 2019-10-14 09:59 | NUR ---
*-* CASE MANAGEMENT *-* NO DISCHARGE ORDER IN THE SYSTEM UNABLE TO SUBMIT ETAR
--- NOTE | 2019-10-14 12:14 | CDS Physician Query ---
PLEASE COMPLETE DOCUMENT BEFORE SIGNING Dear Dr. Ilia Marcus M.D. Date: 10/14/2019 CDI/CDS Name: Chad Hdez Exercise your independent professional judgment when responding to the query. Questions asked do not imply a particular answer is desired or expected. We greatly appreciate your clarification on this issue. CLINICAL DOCUMENTATION STATES: "34-year-old female, who presents with a chief complaint of abdominal pain, nausea, and vomiting" ASSESSMENT: Epigastric abdominal pain, Nausea with vomiting, Cholecystitis, Probable gallstone pancreatitis, Elevated liver function tests, UTI CLINICAL FINDINGS SHOW: Vitals (10/09): T97.2F, Pulse 102, RR22, Labs(10/09): Hemat WBC 11.5, Neut%73.3 Chem: Lipase 54543, Glucose 194 Urine: Ur. Bacteria 1+, Ur.Esterase 1+ CT Abdomen Pelvis w/Contrast(10/09): IMPRESSION:Extensive peripancreatic inflammatory changes consistent with acute pancreatitis. Cholelithiasis. The gallbladder wall is prominent-cannot exclude acute cholecystitis. Medications: Vancomycin IV (10/09), Piperacillin Sod IV (10/09), Acetaminophen 650 PO (10/09-10/01) Please clarify if you mean: [] SIRS (Systemic Inflammatory Response Syndrome) [] SIRS w/ Organ Dysfunction [] Sepsis [] Sepsis w/ Organ Dysfunction [] Septic Shock [X] Not Applicable [] Other Condition Present on Admission: [X] Yes [] No []Clinically Undeterminable Please also document in your Progress Notes and/or Discharge Summary and indicate if the condition was present on admission. MTDD
--- NOTE | 2019-10-15 14:49 | NUR ---
*-* CASE MANAGEMENT *-* NO DISCHARGE ORDER IN THE SYSTEM UNABLE TO SUBMIT ETAR
--- NOTE | 2019-10-15 15:32 | Discharge Summary ---
Discharge Summary Discharge Summary _ DATE OF ADMISSION: 10/10/2019 DATE OF DISCHARGE: 10/12/2019 DISCHARGED BY: Dr. Kidd REASON FOR ADMISSION: 34 years old female with past medical history of diabetes mellitus, gastritis, presented with epigastric pain , which described as burning, constant with associated nausea. No fever or chills. Onset from the last night. No shortness of breath. No diarrhea. Upon evaluation patient was mildly tachycardic with heart rate 102 otherwise vital signs were stable. Laboratory work-up revealed mild leukocytosis WBC 11.5, stable hemoglobin, hematocrit and platelet count. Stable electrolytes and renal parameters. Glucose 194. Troponin negative. EKG revealed sinus rhythm, no acute ischemic changes. Lipase 73275. AST 507, ALT 456, alkaline phosphatase 128. Total bilirubin 2.6 , direct bilirubin 1.3 Glucose 194. Urinalysis revealed +1 protein ,+1 leukocyte esterase, no pyuria, and occasional bacteria. Urine test was negative. Chest x-ray revealed no acute cardiopulmonary pathology. CT scan of the abdomen and pelvis demonstrated extensive peripancreatic inflammatory changes , consistent with acute pancreatitis. Cholelithiasis. The gallbladder wall was prominent, cannot exclude acute cholecystitis. In emergency department patient received IV fluids , analgesic, antiemetic, PPI, started on empiric antibiotic and admitted for further management. CONSULTANTS: GI specialist Dr. Magana surgery Dr. Tafoya [facility]: Patient admitted to medical surgical floor. Patient initially was kept n.p.o. and started on the IV fluids. Pain management was addressed. Supportive care provided. Surgeon and GI specialist followed. Patient undergone abdominal ultrasound, which revealed multiple gallstones with dilated common bile ducts. Fluid around pancreas. Fatty liver. MRCP demonstrated acute pancreatitis with extensive soft tissue edema and fluid around the pancreas along with retroperitoneal extending into the lateral conal fascia region bilaterally. Multiply stones in the gallbladder. No significant wall thickening of the gallbladder noted. No ductal stone. Mild leukocytosis resolved the next day. Patient slowly started on liquid diet and was advanced as tolerated. Pain management and antiemetic provided as needed. Patient was able to tolerate diet. LFT , lipase, amylase and bilirubin trending down. Prior to discharge AST 53, ALT 159, total bilirubin 1.1, and direct bilirubin 0.2. [place] 92195 down to 1764. Amylase from 1381 down to 570. Hemoglobin A1c 6.8, at goal. Diabetic diet provided. Blood sugar was clsoely monitored and managed. Patient clinically stabilized and was ready for discharge home. Patient need to follow-up with a primary care provider with referral to surgeon as per insurance for elective surgery. FINAL DIAGNOSES: Epigastric abdominal pain with nausea and vomiting Cholecystitis Gallstone pancreatitis Diabetes mellitus type 2 Elevated LFT Fatty liver DISCHARGE MEDICATIONS: See Medication Reconciliation list. DISCHARGE INSTRUCTIONS: Patient was discharged home. Follow-up with a primary care provider this week with referral to surgeon for elective surgery. I have been assigned to dictate discharge summary for this account. I was not involved in the patient's management. Holly Luna NP Oct 15, 2019 15:32
== END 2019-10-12 15:22 | disposition home or self-care (01) | DRG 282 ==
LOC: EMR 05:53 → 4E 07:31 → EDBEDREQ 11:38 → 4E 16:21
DX: K85.10 Biliary acute pancreatitis without necrosis or infection (principal); K29.70 Gastritis, unspecified, without bleeding; N39.0 Urinary tract infection, site not specified; K80.20 Calculus of gallbladder without cholecystitis without obstruction; E11.9 Type 2 diabetes mellitus without complications; K76.0 Fatty (change of) liver, not elsewhere classified
CPT/HCPCS: 36415; 71045; 74177; 74181; 76700; 80053; 81003; 81025; 82150; 82248; 82962; 83036; 83690; 84484; 84702; 85025; 85610; 85730; 86850; 86900; 86901; 93005; 96361; 96365; 96368; 96375; 99285; J1815; J2405; J2765; J7030; J8499